=== PATIENT | male | born 1935 | race Caucasian/White ===

== ENCOUNTER 2016-09-11 08:38 | Outpatient (CLI) | payer MEDICARE | END 2016-09-11 08:39 | disposition home or self-care (01) | DX: E11.9 Type 2 diabetes mellitus without complications (principal); Z79.899 Other long term (current) drug therapy ==

== ENCOUNTER 2016-12-21 06:53 | Outpatient (CLI) | payer MEDICARE | END 2016-12-21 06:54 | disposition home or self-care (01) | DX: E78.2 Mixed hyperlipidemia (principal); E11.9 Type 2 diabetes mellitus without complications; Z79.899 Other long term (current) drug therapy ==

== ENCOUNTER 2017-04-16 08:00 | Outpatient (CLI) | payer MEDICARE ==
[2017-04-16 12:36] LABS: BASOPHILS % (AUTO) 0.8 %; EOSINOPHILS # (AUTO) 0.1 10^3/uL (0.0-0.7); EOSINOPHILS % (AUTO) 2.3 %; HCT - HEMATOCRIT 30.8 % (42.0-52.0); HGB - HEMOGLOBIN 10.6 g/dL (14.0-18.0); LYMPHOCYTES % (AUTO) 19.8 %; MEAN CORPUSCULAR HEMOGLOBIN 32.3 pg (27.0-31.0); MEAN CORPUSCULAR HGB CONC 34.3 g/dL (32.0-36.0); MEAN CORPUSCULAR VOLUME 94.3 fL (80.0-94.0); MONOCYTES # (AUTO) 0.5 10^3/uL (0.0-1.0); MONOCYTES % (AUTO) 9.7 %; NEUTROPHILS # (AUTO) 3.5 10^3/uL (1.5-6.6); NEUTROPHILS % (AUTO) 67.4 %; RED BLOOD COUNT 3.27 10^6/uL (4.70-6.10); RED CELL DISTRIBUTION WIDTH 13.2 % (12.0-15.0); UNCORRECTED WHITE BLOOD COUNT 5.1 x10^3/uL; WHITE BLOOD COUNT 5.1 x10^3/uL (4.8-10.8)
[2017-04-16 12:42] LABS: ALBUMIN/GLOBULIN RATIO 1.5 (1.0-2.2); BILIRUBIN,TOTAL 0.4 mg/dL (0.2-1.0); CALCIUM 9.4 mg/dL (8.5-10.3); CREATININE 0.5 mg/dL (0.6-1.2); POTASSIUM 4.5 mmol/L (3.5-5.0); TOTAL PROTEIN 6.8 g/dL (6.7-8.2)
[2017-04-16 13:04] LABS: HEMOGLOBIN A1C 0.82 g/dL
== END 2017-04-16 08:01 | disposition home or self-care (01) ==
LOC: LAB.R 08:00
PROVIDERS: ATTEND Nurse Practitioner Primary Care
DX: R42 Dizziness and giddiness (principal); E11.9 Type 2 diabetes mellitus without complications; D64.9 Anemia, unspecified
CPT/HCPCS: 80053; 83036; 85025

== ENCOUNTER 2017-04-21 08:00 | Outpatient (CLI) | payer MEDICARE ==
[2017-04-21 18:17] LABS: IMMATURE RETIC FRACTION 0.53; RED BLOOD COUNT 3.33 10^6/uL (4.70-6.10)
[2017-04-21 18:39] LABS: IRON 97 ug/dL (45-182); TOTAL IRON BINDING CAPACITY 283 ug/dL (250-450); TRANSFERRIN 202 mg/dL (180-329)
[2017-04-21 18:48] LABS: FOLATE 21.9 ng/mL (5.90 - >24.8)
== END 2017-04-21 08:01 | disposition home or self-care (01) ==
LOC: LAB.R 08:00
PROVIDERS: ATTEND Nurse Practitioner Primary Care
DX: D64.9 Anemia, unspecified (principal)
CPT/HCPCS: 82607; 82728; 82746; 82747; 83010; 83540; 84466; 85044; 86880

== ENCOUNTER 2017-07-16 09:51 | Outpatient (CLI) | payer MEDICARE ==
[2017-07-16 10:51] LABS: HEMOGLOBIN A1C 0.78 g/dL
== END 2017-07-16 09:52 | disposition home or self-care (01) ==
LOC: LAB 09:51
PROVIDERS: ATTEND Nurse Practitioner Primary Care
DX: E11.9 Type 2 diabetes mellitus without complications (principal)
CPT/HCPCS: 36415; 82947; 83036

== ENCOUNTER 2017-08-18 12:44 | Outpatient (CLI) | payer MEDICARE ==
[2017-08-18 12:58] LABS: BASOPHILS # (AUTO) 0.1 10^3/uL (0.0-0.1); EOSINOPHILS # (AUTO) 0.3 10^3/uL (0.0-0.7); EOSINOPHILS % (AUTO) 4.5 %; LYMPHOCYTES # (AUTO) 1.1 10^3/uL (1.5-3.5); LYMPHOCYTES % (AUTO) 16.8 %; MEAN CORPUSCULAR HEMOGLOBIN 32.7 pg (27.0-31.0); MEAN CORPUSCULAR HGB CONC 35.1 g/dL (32.0-36.0); MEAN CORPUSCULAR VOLUME 93.2 fL (80.0-94.0); MEAN PLATELET VOLUME 8.1 fL (7.4-11.4); MONOCYTES # (AUTO) 0.5 10^3/uL (0.0-1.0); MONOCYTES % (AUTO) 8.7 %; NEUTROPHILS # (AUTO) 4.4 10^3/uL (1.5-6.6); PLT - PLATELET COUNT 188 10^3/uL (130-450); RED BLOOD COUNT 3.38 10^6/uL (4.70-6.10); RED CELL DISTRIBUTION WIDTH 13.7 % (12.0-15.0); WHITE BLOOD COUNT 6.3 x10^3/uL (4.8-10.8)
== END 2017-08-18 12:45 | disposition home or self-care (01) ==
LOC: LAB 12:44
PROVIDERS: ATTEND Internal Medicine
DX: D64.9 Anemia, unspecified (principal); C61 Malignant neoplasm of prostate
CPT/HCPCS: 36415; 82728; 84153; 85025

== ENCOUNTER 2017-10-04 13:07 | Emergency (ER) | payer MEDICARE ==
--- NOTE | 2017-10-04 14:35 | ED Physician Documentation ---
PD HPI HEAD INJURY - Stated complaint Stated Complaint: HEAD INJURY/DIARRHEA - Chief complaint Chief Complaint: General - History obtained from History obtained from: Patient, Family - History of Present Illness Mechanism of head injury: Fell (he has had some watery diarrhea starting overnight into today. He was rushing to get to the bathroom and tripped off balance. He denies feeling lightheaded nor syncopal. Struck back of head. He has not had any vomiting. Family concerned about hydration. He is taking oral fluids but feels reluctant to eat (no appetite).) Where head injury occurred: Home Timing - onset: Today Location of injury: Back Quality of pain: Aching, Dull Associated symptoms: Nausea / vomiting (has some nausea but preceded hitting his head. No vomtiing.). No: LOC, AMS Symptoms worsen with: Palpation Contributing factors: No: Anticoagulated Similar symptoms before: Has not had sx before (no other recent falls but is a bit wobbly on his feet, according to family) Recently seen: Not recently seen Review of Systems Constitutional: denies: Fever, Chills Nose: denies: Rhinorrhea / runny nose, Congestion Throat: denies: Sore throat Respiratory: denies: Cough GI: reports: Nausea, Diarrhea (today). denies: Abdominal Pain, Vomiting, Bloody / black stool : denies: Dysuria Skin: reports: Abrasion (s) (scalp from fall today) Musculoskeletal: denies: Neck pain, Back pain Neurologic: reports: Generalized weakness. denies: Focal weakness, Numbness PD PAST MEDICAL HISTORY - Past Medical History Cardiovascular: None Respiratory: None Neuro: Alzhiemer's, Dementia Endocrine/Autoimmune: Type 2 diabetes - Past Surgical History Past Surgical History: No - Present Medications Home Medications: Ambulatory Orders Medication Instructions Recorded Confirmed Lovastatin 20 mg PO DAILY 12/11/13 03/12/14 Metformin HCl [Fortamet] 1,000 mg PO BID 12/11/13 03/12/14 Aspirin [Aspir 81] 81 mg PO DAILY 03/12/14 03/12/14 Insulin Glargine [Lantus Solostar] 22 units SUBQ DAILY 03/12/14 03/19/14 Insulin Glulisine [Apidra Solostar] 7 unit SQ AC 03/12/14 03/12/14 Losartan [Cozaar] 50 mg PO BID 03/12/14 03/12/14 Diphenoxylate HCl/Atropine 1 each PO Q6H PRN #12 tablet 10/04/17 [Diphenoxylate-Atrop 2.5-0.025] Lisinopril/Hydrochlorothiazide 10/04/17 [Lisinopril-Hctz 10-12.5 mg Tab] Ondansetron Odt [Zofran] 4 mg TL Q6H PRN #15 tablet 10/04/17 - Allergies Allergies/Adverse Reactions: Allergies Allergy/AdvReac Type Severity Reaction Status Date / Time No Known Drug Allergies Allergy Verified 10/04/17 13:16 - Social History Does the pt smoke?: No Smoking Status: Never smoker Does the pt drink ETOH?: Yes Does the pt have substance abuse?: No - Immunizations Immunizations are current?: Yes PD ED PE NORMAL - Vitals Vital signs reviewed: Yes - General General: No acute distress, Well developed/nourished. No: Alert and oriented X 3 (alert and conversant but not aware of time c/w his dementia and is baseline per family. ) - HEENT HEENT: PERRL, Pharynx benign, Dentition benign, Other (back of head right with abrasion and slight peel of skin. No lac per se. No FB and is not bleeding at this time. Bandaid in place. ) - Neck Neck: Supple, no meningeal sign, No bony TTP, No adenopathy - Cardiac Cardiac: RRR, No murmur - Respiratory Respiratory: Clear bilaterally, Other (no chestwall tenderness) - Abdomen Abdomen: Soft, Non tender, Non distended, No organomegaly. 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, No motor deficit, No sensory deficit, Normal speech Eye Opening: Spontaneous Motor: Obeys Commands Verbal: Oriented GCS Score: 15 - Psych Psych: Normal mood Results - Vitals Vitals: Vital Signs - 24 hr 10/04/17 10/04/17 13:11 16:18 Temperature 36.6 C 36.6 C Heart Rate 71 70 Respiratory 18 18 Rate Blood Pressure 153/69 H 124/55 L O2 Saturation 100 97 Oxygen O2 Source Room air - Labs Labs: Microbiology 10/04/17 15:50 Clostridium difficile (PCR) - Final Stool 10/04/17 15:50 Campylobacter Antigen Assay - Final Stool PD MEDICAL DECISION MAKING - ED course Complexity details: considered differential (scalp abrasion and did CT which was okay. Family concerned about the diarrhea he has had for couple of days. He does not seem dehydrated and is taking oral fluids. No abd pain nor tenderness. Will treat as likely viral and see if improves. I don't think he is dry enough to need IVs. The fall he had was mechanical and was not near syncopal.), d/w patient, d/w family Departure - Departure Disposition: 01 Home, Self Care Clinical Impression: Vomiting and diarrhea Fall from slip, trip, or stumble Qualifiers: Encounter type: initial encounter Qualified Code(s): W01.0XXA - Fall on same level from slipping, tripping and stumbling without subsequent striking against object, initial encounter Scalp abrasion Qualifiers: Encounter type: initial encounter Qualified Code(s): S00.01XA - Abrasion of scalp, initial encounter Condition: Stable Record reviewed to determine appropriate education?: Yes Instructions: ED Diet Vomiting Diarrhea, ED Avulsion Dermal Follow-Up: Naga Silvestre MD [Primary Care Provider] - Prescriptions: Diphenoxylate HCl/Atropine [Diphenoxylate-Atrop 2.5-0.025] 1 each PO Q6H PRN # 12 tablet PRN Reason: Diarrhea Ondansetron Odt [Zofran] 4 mg TL Q6H PRN #15 tablet PRN Reason: Nausea / Vomiting Comments: Continue usual medications. Drink lots of fluids. Use ondansetron if needed for nausea and Lomotil for diarrhea. For the abrasion, cleanse with soap and water twice daily and apply antibiotic ointment. Recheck if not improved over the next day or so. Return if worsening or consistent symptoms. Discharge Date/Time: 10/04/17 16:44
[2017-10-04] MEDS ORDERED: DIPHENOX/ATROPINE 2.5/0.025 MG TABLET PO STA (14:51)
[2017-10-04] MEDS ORDERED: ONDANSETRON ODT 4 MG TABLET TL STA (14:51)
[2017-10-04] MEDS ORDERED: MUPIROCIN 2% OINT 1 GM TOP STA (14:51)
[2017-10-04] MEDS ORDERED: ACETAMINOPHEN 325 MG TABLET PO STA (14:52)
--- NOTE | 2017-10-04 15:32 | CT Report ---
EXAM: CT HEAD EXAM DATE: 10/04/2017 03:24 PM. CLINICAL HISTORY: Fall with head injury, right occiput. COMPARISON: 09/10/2015. TECHNIQUE: Multiaxial CT images were obtained from the foramen magnum to the vertex. Reformats: Coron al. IV contrast: None. In accordance with CT protocol optimization, one or more of the following dose reduction techniques w ere utilized for this exam: automated exposure control, adjustment of mA and/or KV based on patient s ize, or use of iterative reconstructive technique. FINDINGS: Parenchyma: No intraparenchymal hemorrhage. No evidence of mass, midline shift, or CT findings of acu te infarction. Shine-white differentiation is distinct. Stable chronic microangiopathic white matter c hanges are evident. Extraaxial Spaces: Normal for age. No subdural or epidural collections identified. Ventricles: The ventricles and cortical sulci are prominent, consistent with age-related tissue loss. Sinuses and orbits: Imaged paranasal sinuses, orbits, and mastoids show no significant abnormality. Bones: No evidence of fracture or calvarial defect. Other: None. IMPRESSION: Stable age-related cortical atrophic changes without evidence of acute intracranial abnor mality. [facility] Referring Provider Line: [phone] SITE ID: [id number]
[2017-10-04 16:18] VITALS: BP 124/55
== END 2017-10-04 16:44 | disposition home or self-care (01) ==
LOC: ED 13:07
DX: R11.2 Nausea with vomiting, unspecified (principal); R19.7 Diarrhea, unspecified; S00.01XA Abrasion of scalp, initial encounter; W01.190A Fall on same level from slipping, tripping and stumbling with subsequent striking against furniture, initial encounter; G30.9 Alzheimer's disease, unspecified; F02.80 Dementia in other diseases classified elsewhere, unspecified severity, without behavioral disturbance, psychotic disturbance, mood disturbance, and anxiety; E11.9 Type 2 diabetes mellitus without complications; Z79.4 Long term (current) use of insulin; Z79.82 Long term (current) use of aspirin
CPT/HCPCS: 70450; 87045; 87046; 87493; 99283; A9270; Q0162

== ENCOUNTER 2017-11-09 08:00 | Outpatient (CLI) | payer MEDICARE ==
[2017-11-09 17:48] LABS: BASOPHILS # (AUTO) 0.1 10^3/uL (0.0-0.1); BASOPHILS % (AUTO) 0.6 %; EOSINOPHILS # (AUTO) 0.1 10^3/uL (0.0-0.7); EOSINOPHILS % (AUTO) 0.8 %; HGB - HEMOGLOBIN 9.9 g/dL (14.0-18.0); LYMPHOCYTES # (AUTO) 0.7 10^3/uL (1.5-3.5); LYMPHOCYTES % (AUTO) 7.7 %; MEAN CORPUSCULAR HEMOGLOBIN 31.2 pg (27.0-31.0); MEAN CORPUSCULAR VOLUME 94.3 fL (80.0-94.0); MEAN PLATELET VOLUME 8.7 fL (7.4-11.4); MONOCYTES # (AUTO) 1.2 10^3/uL (0.0-1.0); MONOCYTES % (AUTO) 13.6 %; NEUTROPHILS # (AUTO) 6.8 10^3/uL (1.5-6.6); NEUTROPHILS % (AUTO) 77.3 %; PLT - PLATELET COUNT 209 10^3/uL (130-450); RED BLOOD COUNT 3.19 10^6/uL (4.70-6.10); RED CELL DISTRIBUTION WIDTH 13.4 % (12.0-15.0); WHITE BLOOD COUNT 8.7 x10^3/uL (4.8-10.8)
[2017-11-09 17:53] LABS: ALBUMIN 3.9 g/dL (3.2-5.5); ALBUMIN/GLOBULIN RATIO 1.3 (1.0-2.2); ALKALINE PHOSPHATASE 48 IU/L (42-121); ALT ALANINE AMINOTRANSFERASE 41 IU/L (10-60); AST ASPARTATE AMINOTRANSFERASE 37 IU/L (10-42); BILIRUBIN,TOTAL 0.8 mg/dL (0.2-1.0); BUN - BLOOD UREA NITROGEN 23 mg/dL (6-20); CALCIUM 8.6 mg/dL (8.5-10.3); CARBON DIOXIDE - CO2 23 mmol/L (21-32); CHLORIDE 97 mmol/L (101-111); CHOL/HDL RATIO 2.3 (<5.0); CHOLESTEROL 126 mg/dL; CREATININE 0.9 mg/dL (0.6-1.2); GFR - MDRD 81 (>89); GLUCOSE 246 mg/dL (70-100); HDL CHOLESTEROL 55 mg/dL; LDL CHOLESTEROL,CALCULATED 53 mg/dL; SODIUM 129 mmol/L (135-145); TOTAL PROTEIN 6.9 g/dL (6.7-8.2); VLDL CHOLESTEROL 18 mg/dL
[2017-11-09 18:25] LABS: HB2 TOTAL 10.3 g/dL; HEMOGLOBIN A1C 0.54 g/dL; HEMOGLOBIN A1C % 6.9 % (4.6-6.2)
== END 2017-11-09 08:01 ==
LOC: LAB.R 08:00
PROVIDERS: ATTEND Nurse Practitioner Primary Care
DX: E11.9 Type 2 diabetes mellitus without complications (principal); E78.5 Hyperlipidemia, unspecified; C61 Malignant neoplasm of prostate; F03.90 Unspecified dementia, unspecified severity, without behavioral disturbance, psychotic disturbance, mood disturbance, and anxiety
CPT/HCPCS: 36415; 80053; 80061; 82607; 82728; 82746; 83010; 83036; 83721; 84153; 84443; 85025; 85044; 86880

== ENCOUNTER 2017-11-11 14:00 | Outpatient (CLI) | payer MEDICARE ==
[2017-11-11 17:06] LABS: RED BLOOD COUNT 3.31 10^6/uL (4.70-6.10)
[2017-11-11 17:29] LABS: FERRITIN 580.4 ng/mL (23.9-336.2)
== END 2017-11-11 14:01 ==
LOC: LAB.R 14:00
PROVIDERS: ATTEND Nurse Practitioner Primary Care
DX: D64.9 Anemia, unspecified (principal)
CPT/HCPCS: 82607; 82728; 82746; 85044; 86880

== ENCOUNTER 2018-02-07 08:00 | Outpatient (CLI) | END 2018-02-07 08:01 | disposition home or self-care (01) ==

== ENCOUNTER 2018-02-09 14:10 | Outpatient (CLI) | payer MEDICARE ==
[2018-02-09 18:07] LABS: HB2 TOTAL 10.9 g/dL; HEMOGLOBIN A1C 0.52 g/dL; HEMOGLOBIN A1C % 6.5 % (4.6-6.2)
== END 2018-02-09 14:11 | disposition home or self-care (01) ==
LOC: LAB.R 14:10
PROVIDERS: ATTEND Nurse Practitioner Primary Care
DX: E11.9 Type 2 diabetes mellitus without complications (principal)
CPT/HCPCS: 83036

== ENCOUNTER 2018-08-25 11:15 | Outpatient (CLI) | payer MEDICARE | END 2018-08-25 23:59 | disposition home or self-care (01) | LOC: LAB.R 11:15 | PROVIDERS: ATTEND Urology | DX: C61 Malignant neoplasm of prostate (principal) | CPT/HCPCS: 84153 ==

== ENCOUNTER 2018-09-26 08:00 | Outpatient (CLI) | payer MEDICARE ==
[2018-09-26 13:10] LABS: BASOPHILS % (AUTO) 0.6 %; EOSINOPHILS # (AUTO) 0.1 10^3/uL (0.0-0.7); EOSINOPHILS % (AUTO) 1.9 %; HGB - HEMOGLOBIN 9.6 g/dL (14.0-18.0); LYMPHOCYTES # (AUTO) 0.7 10^3/uL (1.5-3.5); LYMPHOCYTES % (AUTO) 16.6 %; MEAN CORPUSCULAR HEMOGLOBIN 31.1 pg (27.0-31.0); MEAN CORPUSCULAR HGB CONC 33.8 g/dL (32.0-36.0); MEAN CORPUSCULAR VOLUME 91.9 fL (80.0-94.0); MEAN PLATELET VOLUME 8.8 fL (7.4-11.4); MONOCYTES # (AUTO) 0.4 10^3/uL (0.0-1.0); MONOCYTES % (AUTO) 9.1 %; NEUTROPHILS # (AUTO) 3.1 10^3/uL (1.5-6.6); NEUTROPHILS % (AUTO) 71.8 %; PLT - PLATELET COUNT 182 10^3/uL (130-450); RED BLOOD COUNT 3.09 10^6/uL (4.70-6.10); RED CELL DISTRIBUTION WIDTH 15.1 % (12.0-15.0); WHITE BLOOD COUNT 4.3 x10^3/uL (4.8-10.8)
[2018-09-26 13:18] LABS: ALBUMIN 3.7 g/dL (3.2-5.5); ALBUMIN/GLOBULIN RATIO 1.3 (1.0-2.2); BILIRUBIN,TOTAL 0.9 mg/dL (0.2-1.0); CALCIUM 8.8 mg/dL (8.5-10.3); CREATININE 0.6 mg/dL (0.6-1.2); TOTAL PROTEIN 6.6 g/dL (6.7-8.2)
[2018-09-26 13:40] LABS: HB2 TOTAL 10.3 g/dL; HEMOGLOBIN A1C 0.58 g/dL; HEMOGLOBIN A1C % 7.3 % (4.6-6.2)
== END 2018-09-26 23:59 | disposition home or self-care (01) ==
LOC: LAB.R 08:00
PROVIDERS: ATTEND Internal Medicine
DX: I10 Essential (primary) hypertension (principal); E11.9 Type 2 diabetes mellitus without complications
CPT/HCPCS: 80053; 83036; 85025

== ENCOUNTER 2019-01-03 13:56 | Emergency (ER) | payer MEDICARE ==
[2019-01-03 14:07] VITALS: BP 144/62
[2019-01-03] MEDS ORDERED: TETANUS/DIPHTHERIA/PERTUSSIS 0.5 ML SYRINGE IM ONE (14:15)
--- NOTE | 2019-01-03 14:18 | ED Physician Documentation ---
PD HPI HEAD INJURY - Stated complaint Stated Complaint: GLF/HEAD AND ELBOW INJURY - Chief complaint Chief Complaint: Trauma Hd/Nk - History obtained from History obtained from: Family (daughter) - History of Present Illness Mechanism of head injury: Fell (Trip and fall on the curb, he has some skin tears on the left hand and left elbow scraped his face. No loss of consciousness. He has no specific complaints but has Alzheimer's. He is pleasant cooperative with a great sense of humor but a poor historian.) Review of Systems Unable to obtain: Dementia PD PAST MEDICAL HISTORY - Past Medical History Cardiovascular: None Respiratory: None, Shortness of breath Neuro: Alzhiemer's Endocrine/Autoimmune: Type 2 diabetes : Frequency Derm: Eczema - Past Surgical History Past Surgical History: No - Present Medications Home Medications: Ambulatory Orders Medication Instructions Recorded Confirmed Metformin HCl [Fortamet] 1,000 mg PO DAILY 12/11/13 12/19/18 Aspirin [Aspir 81] 81 mg PO DAILY 03/12/14 12/19/18 Insulin Glargine [Lantus Solostar] 22 units SUBQ DAILY 03/12/14 12/19/18 Insulin Glulisine [Apidra Solostar] 7 unit SQ AC 03/12/14 12/19/18 Losartan [Cozaar] 25 mg PO BID 03/12/14 12/19/18 Multivit-Min/FA/Lycopen/Lutein 1 tab PO DAILY 11/07/18 12/19/18 [Centrum Silver Men Tablet] Vitamin B Complex/Folic Acid 1,000 mg PO DAILY 11/07/18 12/19/18 [B-Complex Tablet] - Allergies Allergies/Adverse Reactions: Allergies Allergy/AdvReac Type Severity Reaction Status Date / Time No Known Drug Allergies Allergy Verified 01/03/19 14:07 - Social History Does the pt smoke?: No Smoking Status: Never smoker Does the pt drink ETOH?: Yes Does the pt have substance abuse?: No - Immunizations Immunizations are current?: Yes PD ED PE NORMAL - Vitals Vital signs reviewed: Yes - General General: Other (Alert and oriented to person only) - HEENT HEENT: PERRL, EOMI, Other (There is a small abrasion on the right forehead, no bony tenderness of the face) - Neck Neck: Supple, no meningeal sign, No bony TTP - Cardiac Cardiac: RRR, No murmur - Respiratory Respiratory: No respiratory distress, Clear bilaterally - Abdomen Abdomen: Non tender - Back Back: No spinal TTP - Extremities Extremities: Other (There is a shallow crescentic 2 cm skin tear on the lateral epicondyle of the left elbow without tenderness or limited range of motion and a little abrasion on the ulnar side of the fifth metacarpal, also without tenderness or limited range of motion) - 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, Normal speech Eye Opening: Spontaneous Motor: Obeys Commands Verbal: Confused GCS Score: 14 Results - Vitals Vitals: Vital Signs - 24 hr 01/03/19 01/03/19 14:05 14:08 Temperature 36.5 C Heart Rate 100 Respiratory 18 18 Rate Blood Pressure 144/62 H O2 Saturation 99 Oxygen O2 Source Room air - Rads (name of study) CT Head and C spine Radiology: EMP read contemporaneously (NAD< Vascular disease) Departure - Departure Disposition: 01 Home, Self Care Clinical Impression: Concussion Qualifiers: Encounter type: initial encounter Loss of consciousness presence/duration: without LOC Qualified Code(s): S06.0X0A - Concussion without loss of consciousness, initial encounter Fall from slip, trip, or stumble Qualifiers: Encounter type: initial encounter Qualified Code(s): W01.0XXA - Fall on same level from slipping, tripping and stumbling without subsequent striking against object, initial encounter Scalp abrasion Qualifiers: Encounter type: initial encounter Qualified Code(s): S00.01XA - Abrasion of scalp, initial encounter Elbow abrasion Qualifiers: Encounter type: initial encounter Laterality: left Qualified Code(s): S50.312A - Abrasion of left elbow, initial encounter Condition: Stable Record reviewed to determine appropriate education?: Yes Instructions: ED Head Injury Closed Comments: The abrasions can be cleansed with soap and water and kept moist with bacitracin ointment which is available [id number]. The CAT scans are normal with the exception of hardening of the arteries in the neck. You can discuss a carotid ultrasound with your primary care physician with overall goals of care in mind. Return for new or worsening symptoms.
--- NOTE | 2019-01-03 14:42 | CT Report ---
Reason: head inj, fall Procedure Date: 01/03/2019 Accession Number: [id number] / [id number] Procedure: CT - HEAD WO CPT Code: FULL RESULT: EXAM: CT HEAD EXAM DATE: 01/03/2019 02:30 PM. CLINICAL HISTORY: Fall, pain. COMPARISON: HEAD W/O 10/04/2017 3:15 PM. TECHNIQUE: Multiaxial CT images were obtained from the foramen magnum to the vertex. Reformats: Sagittal and coronal. IV contrast: None. In accordance with CT protocol optimization, one or more of the following dose reduction techniques were utilized for this exam: automated exposure control, adjustment of mA and/or KV based on patient size, or use of iterative reconstructive technique. FINDINGS: Parenchyma: No intraparenchymal hemorrhage. No evidence of mass, midline shift, or CT findings of acute infarction. Shine-white differentiation is distinct. Diffuse chronic microangiopathic white matter changes. Extraaxial Spaces: Normal for age. No subdural or epidural collections. Ventricles: The ventricles and cortical sulci are enlarged, consistent with age-related tissue loss. Sinuses and orbits: Imaged paranasal sinuses, orbits, and mastoids show no significant abnormality. Bones: Unremarkable. Other: Localized soft tissue swelling with small amount of subcutaneous emphysema lateral to the left orbit. IMPRESSION: 1. Soft tissue swelling. 2. Generalized age-related cortical atrophic changes without evidence of acute intracranial abnormality. [facility]
--- NOTE | 2019-01-03 14:48 | CT Report ---
Reason: head inj, fall Procedure Date: 01/03/2019 Accession Number: [id number] / [id number] Procedure: CT - CERVICAL SPINE WO CPT Code: FULL RESULT: EXAM: CT CERVICAL SPINE WITHOUT CONTRAST DATE: 01/03/2019 02:30 PM. HISTORY: Fall, pain. COMPARISONS: HEAD W/O 10/04/2017 3:15 PM. TECHNIQUE: Thin-section axial images were acquired of the cervical spine without contrast. Post-processing: Coronal and sagittal reformats. Other: None. In accordance with CT protocol optimization, one or more of the following dose reduction techniques were utilized for this exam: automated exposure control, adjustment of mA and/or KV based on patient size, or use of iterative reconstructive technique. FINDINGS: Alignment: Moderate scoliosis. No listhesis. Bones: No fracture or bone lesion. Interspace Levels/Facets: Disk spaces generally well preserved. Moderate to marked degenerative changes, right worse than left. Musculature: Unremarkable. Other: No prevertebral soft tissue swelling. Prominent carotid calcifications. Right lung apex appears clear; left lung apex not seen. IMPRESSION: 1. No acute disease. 2. Chronic findings as described, including carotid calcifications. Carotid duplex ultrasound is recommended. [facility]
== END 2019-01-03 15:03 | disposition home or self-care (01) ==
LOC: ED 13:56
DX: S06.0X0A Concussion without loss of consciousness, initial encounter (principal); S00.81XA Abrasion of other part of head, initial encounter; S51.012A Laceration without foreign body of left elbow, initial encounter; S61.217A Laceration without foreign body of left little finger without damage to nail, initial encounter; W01.0XXA Fall on same level from slipping, tripping and stumbling without subsequent striking against object, initial encounter; Y92.481 Parking lot as the place of occurrence of the external cause; G20 Parkinson's disease; E11.9 Type 2 diabetes mellitus without complications; Z79.4 Long term (current) use of insulin
CPT/HCPCS: 70450; 72125; 90471; 99283

== ENCOUNTER 2019-01-09 22:07 | Emergency (ER) | payer MEDICARE ==
[2019-01-09] MEDS ORDERED: SODIUM CHLORIDE 0.9% 1,000 ML IV ONE (22:23)
--- NOTE | 2019-01-09 22:26 | ED Physician Documentation ---
History of Present Illness - Stated complaint Stated Complaint: FEELS WARM - History obtained from History obtained from: Family - Additonal information Additional information: Patient is an 83-year-old male with history of dementia and diabetes presenting with his adult daughter who is concerned for him being slightly more confused than usual. She does admit that he usually goes to bed at 9 PM and did exert himself more than usual today with walking around and is possibly dehydrated. She denies new injury, fall, striking of head. She also denies any changes in his medical baseline such as new vomiting, diarrhea, urinary changes, complains of pain, difficulty breathing, cough, or fever. No other improving or worsening factors noted. Review of Systems Constitutional: denies: Fever Cardiac: denies: Chest pain / pressure Respiratory: denies: Dyspnea PD PAST MEDICAL HISTORY - Past Medical History Cardiovascular: None Respiratory: None, Shortness of breath Neuro: Alzhiemer's Endocrine/Autoimmune: Type 2 diabetes : Frequency Derm: Eczema - Past Surgical History Past Surgical History: No - Present Medications Home Medications: Ambulatory Orders Medication Instructions Recorded Confirmed Metformin HCl [Fortamet] 1,000 mg PO DAILY 12/11/13 12/19/18 Aspirin [Aspir 81] 81 mg PO DAILY 03/12/14 12/19/18 Insulin Glargine [Lantus Solostar] 22 units SUBQ DAILY 03/12/14 12/19/18 Insulin Glulisine [Apidra Solostar] 7 unit SQ AC 03/12/14 12/19/18 Losartan [Cozaar] 25 mg PO BID 03/12/14 12/19/18 Multivit-Min/FA/Lycopen/Lutein 1 tab PO DAILY 11/07/18 12/19/18 [Centrum Silver Men Tablet] Vitamin B Complex/Folic Acid 1,000 mg PO DAILY 11/07/18 12/19/18 [B-Complex Tablet] Azithromycin 250 mg PO DAILY #4 tablet 01/10/19 - Allergies Allergies/Adverse Reactions: Allergies Allergy/AdvReac Type Severity Reaction Status Date / Time No Known Drug Allergies Allergy Verified 01/03/19 14:07 - Social History Does the pt smoke?: No Smoking Status: Never smoker Does the pt drink ETOH?: Yes Does the pt have substance abuse?: No - Immunizations Immunizations are current?: Yes PD ED PE NORMAL - Vitals Vital signs reviewed: Yes - General General: No acute distress, Well developed/nourished, Other (Appears confused and is otherwise not oriented, but daughter reports his baseline) - HEENT HEENT: Atraumatic, PERRL, Moist mucous membranes - Cardiac Cardiac: RRR, No murmur - Respiratory Respiratory: No respiratory distress, Clear bilaterally - Abdomen Abdomen: Soft, Non tender, Non distended - Derm Derm: Normal color, Warm and dry, No rash - Extremities Extremities: No deformity, No tenderness to palpate - Neuro Neuro: No motor deficit, No sensory deficit (No gross deficits noted. Per daughter, patient has had his normal physical and mental baseline except for slight more confusion than usual). No: Alert and oriented X 3 Results - Vitals Vitals: Vital Signs - 24 hr 01/09/19 01/09/19 01/09/19 22:22 22:46 23:03 Temperature 37.7 C H Heart Rate 80 80 77 Respiratory 20 18 16 Rate Blood Pressure 155/60 H 149/77 H 148/63 H O2 Saturation 92 93 94 Oxygen O2 Source Room air - EKG (time done) 2227 Rate: Rate (enter#) (84) Rhythm: NSR Computer interpretation: Disagree with computer (Artifact present, not A. fib) - Labs Labs: Laboratory Tests 01/09/19 01/09/19 01/09/19 22:35 22:35 22:35 WBC 16.6 H RBC 3.74 L Hgb 11.1 L Hct 34.1 L MCV 91.1 MCH 29.6 MCHC 32.5 RDW 15.6 H Plt Count 192 MPV 7.9 Neut # (Auto) 15.3 H Lymph # (Auto) 0.5 L Bea[place]gard # (Auto) 0.7 Eos # (Auto) 0.1 Baso # (Auto) 0.1 Absolute Nucleated RBC 0.00 Nucleated RBC % 0.0 Sodium 136 Potassium 4.2 Chloride 100 L Carbon Dioxide 22 Anion Gap 14.0 H BUN 27 H Creatinine 0.7 Estimated GFR (MDRD) 108 Glucose 174 H Lactic Acid Calcium 9.2 Total Bilirubin 0.6 AST 28 ALT 21 Alkaline Phosphatase 63 Troponin I < 0.04 Total Protein 7.6 Albumin 4.3 Globulin 3.3 Albumin/Globulin Ratio 1.3 Lipase 21 L Urine Color Urine Clarity Urine pH Ur Specific [place] Urine Protein Urine Glucose (UA) Urine Ketones Urine Occult Blood Urine Nitrite Urine Bilirubin Urine Urobilinogen Ur Leukocyte Esterase Urine RBC Urine WBC Ur Squamous Epith Cells Urine Bacteria Urine Mucus Ur Microscopic Review Urine Culture Comments 01/09/19 01/09/19 23:20 23:55 WBC RBC Hgb Hct MCV MCH MCHC RDW Plt Count MPV Neut # (Auto) Lymph # (Auto) Bea[place]gard # (Auto) Eos # (Auto) Baso # (Auto) Absolute Nucleated RBC Nucleated RBC % Sodium Potassium Chloride Carbon Dioxide Anion Gap BUN Creatinine Estimated GFR (MDRD) Glucose Lactic Acid 1.8 Calcium Total Bilirubin AST ALT Alkaline Phosphatase Troponin I Total Protein Albumin Globulin Albumin/Globulin Ratio Lipase Urine Color YELLOW Urine Clarity CLEAR Urine pH 6.0 Ur Specific [place] 1.020 Urine Protein 30 H Urine Glucose (UA) NEGATIVE Urine Ketones NEGATIVE Urine Occult Blood TRACE-INTA Urine Nitrite NEGATIVE Urine Bilirubin NEGATIVE Urine Urobilinogen 0.2 (NORMAL) Ur Leukocyte Esterase NEGATIVE Urine RBC 0-5 Urine WBC 0-3 Ur Squamous Epith Cells RARE Squamous Urine Bacteria None Seen Urine Mucus Few Strands Ur Microscopic Review INDICATED Urine Culture Comments NOT INDICATED PD MEDICAL DECISION MAKING - ED course Complexity details: reviewed old records, reviewed results, re-evaluated patient, considered differential, d/w patient, d/w family ED course: Patient is presenting with his daughter who is concerned for him being slightly more confused than usual. She denies any new trauma or falls and do not find evidence of new trauma on exam. However, patient did experience a fall recently and was evaluated for such already. Patient himself does not provide much history or complaints. Daughter denies anything in particular, but later does report both her and her father were generally having a cough several days ago which seemed to have resolved. Obtain screening lab work and urinalysis. Also obtain EKG and troponin. No evidence of ischemia and have low suspicion for VA, ACS, myocardial infarction at this time, but considered. Screening lab work returned with evidence of significant leukocytosis. Urinalysis negative for infection. Obtained chest x-ray to further evaluate which reflected pneumonia. Patient to receive IV antibiotics in the ED, however, feel that he has not required hospitalization or exhibiting signs of sepsis at this time and is safe to discharge home. Discussed results and recommendations with daughter who is also comfortable with discharge plan. Departure - Departure Disposition: 01 Home, Self Care Clinical Impression: Pneumonia Qualifiers: Pneumonia type: due to unspecified organism Laterality: unspecified laterality Lung location: unspecified part of lung Qualified Code(s): J18.9 - Pneumonia, unspecified organism Condition: Good Instructions: ED Pneumonia Adult Follow-Up: Chidi Retana MD [Primary Care Provider] - Within 3 Days Prescriptions: Azithromycin 250 mg PO DAILY #4 tablet Comments: Please continue all home medications as previously instructed. Please take antibiotic as instructed through completion to treat pneumonia. Please contact your primary care physician tomorrow to schedule outpatient follow-up within the next several days. Return to ED sooner if experience worsening symptoms or other concerns. Discharge Date/Time: 01/10/19 00:33
[2019-01-09 22:45] LABS: BASOPHILS # (AUTO) 0.1 10^3/uL (0.0-0.1); BASOPHILS % (AUTO) 0.4 %; EOSINOPHILS # (AUTO) 0.1 10^3/uL (0.0-0.7); EOSINOPHILS % (AUTO) 0.5 %; HGB - HEMOGLOBIN 11.1 g/dL (14.0-18.0); LYMPHOCYTES # (AUTO) 0.5 10^3/uL (1.5-3.5); LYMPHOCYTES % (AUTO) 2.9 %; MEAN CORPUSCULAR HEMOGLOBIN 29.6 pg (27.0-31.0); MEAN CORPUSCULAR HGB CONC 32.5 g/dL (32.0-36.0); MEAN CORPUSCULAR VOLUME 91.1 fL (80.0-94.0); MEAN PLATELET VOLUME 7.9 fL (7.4-11.4); MONOCYTES # (AUTO) 0.7 10^3/uL (0.0-1.0); MONOCYTES % (AUTO) 4.2 %; NEUTROPHILS # (AUTO) 15.3 10^3/uL (1.5-6.6); PLT - PLATELET COUNT 192 10^3/uL (130-450); RED BLOOD COUNT 3.74 10^6/uL (4.70-6.10); RED CELL DISTRIBUTION WIDTH 15.6 % (12.0-15.0); WHITE BLOOD COUNT 16.6 x10^3/uL (4.8-10.8)
[2019-01-09 22:58] LABS: ALBUMIN 4.3 g/dL (3.2-5.5); ALBUMIN/GLOBULIN RATIO 1.3 (1.0-2.2); BILIRUBIN,TOTAL 0.6 mg/dL (0.2-1.0); CALCIUM 9.2 mg/dL (8.5-10.3); CREATININE 0.7 mg/dL (0.6-1.2); TOTAL PROTEIN 7.6 g/dL (6.7-8.2)
[2019-01-09 23:25] LABS: BILIRUBIN,URINE NEGATIVE (NEGATIVE); GLUCOSE, URINE (UA) NEGATIVE (NEGATIVE); KETONES,URINE (UA) NEGATIVE (NEGATIVE); LEUKOCYTE ESTERASE, URINE NEGATIVE (NEGATIVE); NITRITE,URINE NEGATIVE (NEGATIVE); OCCULT BLOOD,URINE TRACE-INTA (NEGATIVE); PROTEIN,URINE 30 mg/dL (NEGATIVE); UROBILINOGEN,URINE 0.2 (NORMAL) E.U./dL (NORMAL)
[2019-01-09 23:27] LABS: CLARITY,URINE CLEAR (CLEAR)
[2019-01-09 23:33] LABS: BACTERIA,URINE None Seen /HPF (None Seen); MUCUS,URINE Few Strands; RBC,URINE 0-5 /HPF (0-5); SQUAMOUS EPITHELIAL CELL,UR RARE Squamous (<= Few)
--- NOTE | 2019-01-09 23:46 | XRAY Report ---
Reason: cough Procedure Date: 01/09/2019 Accession Number: [id number] / [id number] Procedure: XR - Chest 2 View X-Ray CPT Code: 06248 FULL RESULT: EXAM: CHEST RADIOGRAPHY EXAM DATE: 01/09/2019 11:38 PM. CLINICAL HISTORY: Cough. COMPARISON: ABDOMEN/PELVIS W/ 05/28/2016 7:29 PM. TECHNIQUE: 2 views. FINDINGS: Lungs/Pleura: Retrocardiac airspace opacity is probably in the left lower lobe. No pneumothorax or effusion. Mediastinum: Borderline cardiomegaly. No mediastinal shift. Other: None. IMPRESSION: Probable left lower lobe pneumonia. [facility]
[2019-01-09] MEDS ORDERED: AZITHROMYCIN INJ 500 MG in SODIUM CHLORIDE 0.9% 250 ML IV STA (23:50)
[2019-01-09] MEDS ORDERED: cefTRIAXone 2 GM in SODIUM CHLORIDE 0.9% MINIBAG 100 ML IV STA (23:50)
[2019-01-10 02:16] VITALS: BP 124/71
== END 2019-01-10 02:20 | disposition home or self-care (01) ==
LOC: ED 22:07
DX: J18.9 Pneumonia, unspecified organism (principal); G30.9 Alzheimer's disease, unspecified; F02.80 Dementia in other diseases classified elsewhere, unspecified severity, without behavioral disturbance, psychotic disturbance, mood disturbance, and anxiety; E11.9 Type 2 diabetes mellitus without complications; Z79.4 Long term (current) use of insulin
CPT/HCPCS: 36415; 71046; 80053; 81001; 81003; 83605; 83690; 84484; 85025; 87040; 87086; 93005; 96361; 96365; 96375; 99283; 99284

== ENCOUNTER 2019-06-11 13:00 | Emergency (ER) | payer MEDICARE ==
[2019-06-11 13:17] VITALS: BP 144/64
== END 2019-06-11 13:47 | disposition left against medical advice (07) ==
LOC: ED 13:00
DX: Z53.21 Procedure and treatment not carried out due to patient leaving prior to being seen by health care provider (principal)

== ENCOUNTER 2019-07-13 10:39 | Outpatient (CLI) | payer MEDICARE | END 2019-07-13 10:40 | disposition critical access hospital (66) | LOC: EMS 10:39 | PROVIDERS: ATTEND Surgery | DX: R53.1 Weakness (principal); R29.810 Facial weakness; R50.9 Fever, unspecified | CPT/HCPCS: A0425; A0429 ==

== ENCOUNTER 2019-07-13 10:51 | Inpatient (IN) | payer MEDICARE ==
--- NOTE | 2019-07-13 11:07 | ED Physician Documentation ---
PD HPI FOCAL NEURO - Stated complaint Stated Complaint: ALOC - Chief complaint Chief Complaint: Neuro - History obtained from History obtained from: Family, EMS - History of Present Illness Timing - onset: Unknown (The patient was last seen normal last night at bedtime and his daughter went to wake him up this morning around 10:00 and he was nonverbal and seemed to be on recognizing of her with deviation of gaze to the left and general weakness. She thought there may been a slight facial droop on the left side. This is unusual behavior for him.) Timing - details: Abrupt onset, Still present Weakness: Other (generalized) Numbness: No: Face, Arm, Leg Associated symptoms: No: Headache, Seizure, Fall, Head injury Contributing factors: positive: Atrial fibrillation (on aspirin only). negative: Anticoagulated Baseline status: positive: Walker, Dementia Similar symptoms before: Has not had sx before Recently seen: Clinic (seen in office recently for increased confusion with presumption of increased dementia. Also with presumed dehydration as had not been taking fluids well.) Review of Systems Unable to obtain: Unresponsive, Other (info from his daughter) Constitutional: denies: Fever Nose: denies: Rhinorrhea / runny nose Cardiac: denies: Chest pain / pressure (patient had not complained of any to his dauther) Respiratory: denies: Cough GI: denies: Abdominal Pain, Vomiting, Diarrhea : reports: Incontinent Musculoskeletal: denies: Neck pain, Back pain PD PAST MEDICAL HISTORY - Past Medical History Cardiovascular: None Respiratory: None, Shortness of breath Neuro: Alzhiemer's Endocrine/Autoimmune: Type 2 diabetes : Frequency Derm: Eczema - Past Surgical History Past Surgical History: No - Present Medications Home Medications: Ambulatory Orders Medication Instructions Recorded Confirmed Metformin HCl [Fortamet] 1,000 mg PO DAILY 12/11/13 02/27/19 Aspirin [Aspir 81] 81 mg PO DAILY 03/12/14 02/27/19 Insulin Glargine [Lantus Solostar] 22 units SUBQ DAILY 03/12/14 02/27/19 Insulin Glulisine [Apidra Solostar] 7 unit SQ AC 03/12/14 02/27/19 Losartan [Cozaar] 25 mg PO BID 03/12/14 02/27/19 Multivit-Min/FA/Lycopen/Lutein 1 tab PO DAILY 11/07/18 02/27/19 [Centrum Silver Men Tablet] Vitamin B Complex/Folic Acid 1,000 mg PO DAILY 11/07/18 02/27/19 [B-Complex Tablet] - Allergies Allergies/Adverse Reactions: Allergies Allergy/AdvReac Type Severity Reaction Status Date / Time No Known Drug Allergies Allergy Verified 07/13/19 11:01 - Social History Does the pt smoke?: No Smoking Status: Never smoker Does the pt drink ETOH?: Yes Does the pt have substance abuse?: No - Immunizations Immunizations are current?: Yes PD ED PE NORMAL - Vitals Vital signs reviewed: Yes - General General: Well developed/nourished, Other (fixed gaze to the left with apparent neglect to the right. Nonverbal. 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 ) - HEENT HEENT: Pharynx benign - Neck Neck: Supple, no meningeal sign, No adenopathy, No bruit - Cardiac Cardiac: No murmur. No: RRR (irregular but controlled rate. ) - Respiratory Respiratory: Clear bilaterally - Abdomen Abdomen: Soft, Non tender - Derm Derm: Normal color, Warm and dry - Extremities Extremities: No edema, No calf tenderness / cord - Neuro Neuro: No motor deficit, No sensory deficit. No: Normal speech NIHSS - Level of Consciousness Level of consciousness: (1) Not alert, but arousable by minor stimulation to obey, or answer LOC Questions: (2) Answers neither correct LOC Commands: (1) Performs one correctly - Gaze Best Gaze: (2) Forced deviation - Visual Visual: (0) No loss - Facial Palsy Facial Palsy: (0) Normal, symmetrical movement - Motor Arms (both separate) Motor Arm (right): (0) No drift Motor Arm (left): (0) No drift - Motor Legs (both separate) Motor Leg (right): (0) No drift Motor Leg (left): (0) No drift - Limb Ataxia Limb Ataxia: (2) Present in 2 limbs - Sensory Sensory: (0) Normal - Best Language Best Language: (2) Severe aphasia - Dysarthria Dysarthria: (0) Normal - Extinction and Inattention (formally neg Extinction and inattention: (2) Profound oriana-inattention or extinction to more than one modality - Total Score/Results Total Score/Result: 12 Results - Vitals Vitals: Vital Signs - 24 hr 07/13/19 07/13/19 10:52 13:01 Temperature 99.3 C H Heart Rate 80 75 Respiratory 18 15 Rate Blood Pressure 127/95 H 158/85 H O2 Saturation 100 92 Oxygen O2 Source Room air - EKG (time done) 12:10 Rate: Rate (enter#) (82) Rhythm: Atrial fibrillation [place]: Normal QRS: Normal Ischemia: Normal ST segments. No: ST elevation c/w ischemia, ST depression - Labs Labs: Laboratory Tests 07/13/19 07/13/19 07/13/19 11:02 11:02 11:02 WBC 11.7 H RBC 3.07 L Hgb 9.6 L Hct 29.7 L MCV 96.7 H MCH 31.3 H MCHC 32.3 RDW 13.1 Plt Count 332 MPV 9.1 Neut # (Auto) 9.5 H Lymph # (Auto) 0.8 L [place] # (Auto) 1.2 H Eos # (Auto) 0.1 Baso # (Auto) 0.0 Absolute Nucleated RBC 0.00 Nucleated RBC % 0.0 Sodium 141 Potassium 3.8 Chloride 105 Carbon Dioxide 26 Anion Gap 10.0 BUN 19 Creatinine 0.7 Estimated GFR (MDRD) 108 Glucose 125 H Glycated Hemoglobin 7.0 H Estim Average Glucose 154 H Lactic Acid Calcium 8.5 Magnesium 2.0 Total Bilirubin 1.2 H AST 73 H ALT 43 Alkaline Phosphatase 75 Total Protein 7.3 Albumin 3.4 Globulin 3.9 Albumin/Globulin Ratio 0.9 L Lipase 21 L 07/13/19 12:12 WBC RBC Hgb Hct MCV MCH MCHC RDW Plt Count MPV Neut # (Auto) Lymph # (Auto) [place] # (Auto) Eos # (Auto) Baso # (Auto) Absolute Nucleated RBC Nucleated RBC % Sodium Potassium Chloride Carbon Dioxide Anion Gap BUN Creatinine Estimated GFR (MDRD) Glucose Glycated Hemoglobin Estim Average Glucose Lactic Acid 1.3 Calcium Magnesium Total Bilirubin AST ALT Alkaline Phosphatase Total Protein Albumin Globulin Albumin/Globulin Ratio Lipase - Rads (name of study) head CT Radiology: Prelim report reviewed, Discussed with rads (no ICH. Small acute to subacute infarct left prefrontal 1x1.8 cm. The angio portion did not show any major vessel abnormality. ), See rad report chest xray Radiology: Prelim report reviewed (no acute infiltrates), See rad report PD MEDICAL DECISION MAKING - ED course Complexity details: considered differential, d/w patient, d/w family (daughter informed of the findings and updated along the way. She is the POA and states the patient did not have POLST as yet, but we discussed the various levels of interventions so the hospitalist can firm up the level of care appropriate. ), d/w real estate listing consultant (I talked with [facility] stroke neurology who felt the patient was not a candidate for TPA nor endovascular interventions. Suggest echocardiogram. If indicated and the patient is low risk for falls etc., to recommend further anticoagulation after a week.) Departure - Departure Disposition: 66 [facility] DC/Xfer Clinical Impression: Acute CVA (cerebrovascular accident), Aphasia Condition: Stable Record reviewed to determine appropriate education?: Yes Discharge Date/Time: 07/13/19 14:13
[2019-07-13] MEDS ORDERED: SODIUM CHLORIDE 0.9% 1,000 ML IV ONE (11:08)
[2019-07-13 11:15] LABS: BASOPHILS % (AUTO) 0.3 %; EOSINOPHILS # (AUTO) 0.1 10^3/uL (0.0-0.7); EOSINOPHILS % (AUTO) 0.8 %; HGB - HEMOGLOBIN 9.6 g/dL (14.0-18.0); LYMPHOCYTES # (AUTO) 0.8 10^3/uL (1.5-3.5); MEAN CORPUSCULAR HEMOGLOBIN 31.3 pg (27.0-31.0); MEAN CORPUSCULAR HGB CONC 32.3 g/dL (32.0-36.0); MEAN CORPUSCULAR VOLUME 96.7 fL (80.0-94.0); MEAN PLATELET VOLUME 9.1 fL (7.4-11.4); MONOCYTES # (AUTO) 1.2 10^3/uL (0.0-1.0); MONOCYTES % (AUTO) 10.4 %; NEUTROPHILS # (AUTO) 9.5 10^3/uL (1.5-6.6); NEUTROPHILS % (AUTO) 80.7 %; PLT - PLATELET COUNT 332 10^3/uL (130-450); RED BLOOD COUNT 3.07 10^6/uL (4.70-6.10); RED CELL DISTRIBUTION WIDTH 13.1 % (12.0-15.0); WHITE BLOOD COUNT 11.7 x10^3/uL (4.8-10.8)
[2019-07-13 11:24] LABS: ALBUMIN 3.4 g/dL (3.2-5.5); ALBUMIN/GLOBULIN RATIO 0.9 (1.0-2.2); BILIRUBIN,TOTAL 1.2 mg/dL (0.2-1.0); CALCIUM 8.5 mg/dL (8.5-10.3); CREATININE 0.7 mg/dL (0.6-1.2); TOTAL PROTEIN 7.3 g/dL (6.7-8.2)
--- NOTE | 2019-07-13 12:11 | CT Report ---
Reason: aphasia and general weakness this morning Procedure Date: 07/13/2019 Accession Number: [id number] / [id number] Procedure: CT - Head W/O Stroke Protocol CPT Code: Final Report FULL RESULT: CT HEAD WITHOUT CONTRAST INDICATION: 84-year-old male. Aphasia and general weakness this a.m. Concern for acute CVA. TECHNIQUE: Sequential 5 mm axial images were obtained through the brain. In accordance with CT protocol optimization, one or more of the following dose reduction techniques were utilized for this exam: automated exposure control, adjustment of mA and/or KV based on patient size, or use of iterative reconstructive technique. COMPARISON: 01/03/2019. FINDINGS: There is generalized prominence of the cerebral cortical sulci and cerebellar folia, stable. Again demonstrated is moderate to marked third/lateral ventriculomegaly, unchanged. The temporal horns of the lateral ventricles remain markedly dilated. There is multifocal white matter disease in the supratentorial brain, likely representing chronic microangiopathy. There has been interval development of a small area of abnormal hypodensity involving the cortex and underlying white matter in the lateral aspect of the posterior left frontal lobe (see images 23 through 25 of series #8). This includes the left precentral gyrus. Imaging findings are consistent with infarction, age indeterminant but presumably acute to subacute. There is mild localized mass effect manifested as cortical sulcal effacement. The left MCA territory otherwise appears spared. There is no intracranial hemorrhage or abnormal extra-axial fluid collection. There is no mass-effect or midline shift. Heavily calcified atherosclerotic plaque is noted in the carotid siphons in both vertebral arteries. The middle ear cavities and mastoid air cells appear clear. The imaged paranasal sinuses are essentially clear. IMPRESSION: 1. Small area of recent (presumably acute or early subacute) infarction in the lateral aspect, posterior left frontal lobe, including the left precentral gyrus. This extends over a distance of roughly 1.3 x 1.85 cm. This is in the left MCA territory. 2. The left MCA territory is otherwise spared. The ASPECTS appears to be equal 9 (on the left) 3. There is no intracranial hemorrhage. The critical test notification system was initiated by Dr. Kemal Storm at 11:30 AM on 07/13/2019. The above critical test findings were discussed with Dr. Socrates Watters by Dr. Kemal Storm at 12:09 PM on 07/13/2019.
--- NOTE | 2019-07-13 12:34 | XRAY Report ---
Reason: general weakness Procedure Date: 07/13/2019 Accession Number: [id number] / [id number] Procedure: XR - Chest 1 View X-Ray CPT Code: 04397 Final Report FULL RESULT: EXAM: CHEST RADIOGRAPHY EXAM DATE: 07/13/2019 12:07 PM. CLINICAL HISTORY: General weakness. COMPARISON: CHEST 2 VIEW 01/09/2019 11:10 PM. TECHNIQUE: 1 view. FINDINGS: Lungs/Pleura: Low lung volumes with mild crowding/congestion small amount of bronchial wall thickening centrally. Minimal reticulation noted at the bases. No lobar consolidation. No large effusion. No pneumothorax. Mediastinum: Cardiac silhouette size appears stable. Mild vascular calcifications. Other: None. IMPRESSION: 1. Mildly low lung volumes with mild crowding/congestion. 2. Small amount of bronchial wall thickening centrally, suggesting airways disease. 3. Minimal reticulation noted at the bases, likely small amount of atelectasis or scarring. No lobar consolidation or large effusions. RADIA
[2019-07-13] MEDS ORDERED: SODIUM CHLORIDE FLUSH 0.9% 10 ML SYRINGE IVP PRN (13:05)
[2019-07-13] MEDS ORDERED: ACETAMINOPHEN 325 MG TABLET PO PRN (13:05)
[2019-07-13] MEDS ORDERED: ONDANSETRON ODT 4 MG TABLET TL PRN (13:05)
[2019-07-13] MEDS ORDERED: ONDANSETRON 4 MG/2 ML VIAL IVP PRN (13:05)
--- NOTE | 2019-07-13 13:08 | CT Report ---
Reason: aphasia and weakness Procedure Date: 07/13/2019 Accession Number: [id number] / [id number] Procedure: CT - ANGIO NECK W CPT Code: Final Report FULL RESULT: CT ANGIOGRAM NECK INDICATION: 84-year-old male. Aphasia and weakness. Has a small left MCA infarction on head CT. Please assess. TECHNIQUE: 80 cc of Optiray 320 contrast were injected at a rapid rate through a large bore, right antecubital intravenous catheter. The neck was scanned helically and the data was reconstructed into 0.5 mm axial images. In addition, MIP reconstructions have been generated in multiple projections to allow better assessment of the extracranial carotid and vertebral arteries. Significant arterial stenoses will be assessed using NASCET type measurements. In accordance with CT protocol optimization, one or more of the following dose reduction techniques were utilized for this exam: automated exposure control, adjustment of mA and/or KV based on patient size, or use of iterative reconstructive technique. COMPARISON: None. FINDINGS: There is normal branching of the aortic arch. There is calcified plaque at the origin of the left subclavian artery with associated mild narrowing. The majority of the proximal left subclavian artery is excluded in the field of view provided. No obvious hemodynamically significant stenosis is seen. There is calcified plaque at the origin of the left common carotid artery without significant stenosis. The innominate artery appears widely patent. Right carotid artery: There is calcified plaque at the carotid bifurcation with extension into the carotid bulb. The lumen in the distal common carotid artery, just proximal to the bifurcation is reduced to about 4.3 mm. More proximally the carotid artery measures about 8.2 mm diameter. This is consistent with a 50% NASCET type stenosis. There is mild narrowing in the distal bulb. The extracranial ICA is otherwise unremarkable. Left carotid artery: There is heavily calcified plaque at the carotid bifurcation that extends into the carotid bulb. In the distal common carotid artery, just proximal to the bifurcation heavily calcified plaque reduces the luminal diameter to about 1.8 mm. More proximally the ICA measures about 8 mm. This is consistent with a 75-80% NASCET type stenosis. In addition, there appears to be at least 70% narrowing in the mid carotid bulb. The extracranial ICA is otherwise unremarkable. Right vertebral artery: There is minor calcified plaque at the origin without associated stenosis. The V1 segment is partially obscured due to artifact. Grossly no pathology is demonstrated. The V2 segment is patent throughout. Beam-hardening artifact from metal dental hardware limits assessment of the V2-V3 junction. Grossly no pathology is demonstrated. The V3 segment appears patent. Left vertebral artery: Patent from origin to distal V3 segment without significant focal narrowing. IMPRESSION: 1. 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 In addition, there is mild narrowing in the carotid bulb. 2. 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 3. No evidence of dissection or significant stenosis in the extracranial vertebral arteries.
--- NOTE | 2019-07-13 13:13 | HISTORY & PHYSICAL EXAMINATION ---
Chief Complaint - Chief Complaint Chief Complaint: altered mental status with left body gaze History of Present Illness - Admitted From Admitted From:: Home/ER - History Obtained From Records Reviewed: [facility] History obtained from: Jose Alfredo and Dr. Watters Exam Limitations: patient is silent now - History of Present Illness HPI Comment/Other: He is an 84-year-old male who stroke risk factors include male sex, history of HTN, current diabetes mellitus, hyperlipidemia. He is been gradually gradually more demented since approximately 2009. By 2011 he was no longer able to drive and could no longer pay bills. His daughter moved in to take care of her mother and father in 2013. His last year, and his daughter is been taking care of him since. He is able to feed himself, dress himself, and is supposed t o be walking with a walker but forgets to use it. He has balance issues. He has chronic atrial fibrillation and is not on anticoagulation other than aspirin. He was in [place] on 07/10 to see his grandaughter in a play and his daughter noticed he was so tired he didn't want to walk. So on the way home, they stopped in [facility] and he was with "normal labs" and was told he was dehydrated and sent home. Yesterday, 07/12, she noticed that he was getting slower to walk up the stairs in their house. No specific hemiplegia, dysarthria but he was also slow to speak. There was no fever, chills, cough, abdominal pain. Appetite was the same as usual. No change in bowel habits. He has chronic urinary incontinence. He went to bed as usual, and she went to wake him up to 10 this morning. She has noticed that he gazes off to the left. Is nonverbal. And really cannot get up to walk. He is not trembling, or off-balance, does not seem to understand what to do to get up and walk. He was seen by Dr. Watters where his temperature is 99.3. Blood pressure 127/95. He has evidence of body neglect in that he just does not look to his left. He has moderate to marked third/lateral ventriculomegaly that is unchanged. The temporal horns of the lateral ventricles remain markedly dilated . 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 Since his last CAT scan he is at interval development of a small area of abnormal hypodensity involving the cortex and underlying white matter in the lateral aspect of the posterior left frontal lobe including the left precentral gyrus. This is in the left middle cerebral territory. Extends over a distance of 1.3 x 1.85 cm. The other left middle cerebral artery territory is otherwise spared. Of note, he appears to have atrial fibrillation on EKG. This is a new diagnosis for him. He was seen in the emergency room in December 2018, that EKG was interpreted as atrial fibrillation by the computer. However the ER physician over read that and felt it was artifact. As such the patient is now admitted for stroke. History - Past Medical History Cardiovascular: reports: Hypertension, Atrial fibrillation Respiratory: reports: Shortness of breath Neuro: reports: Alzhiemer's Endocrine/Autoimmune: reports: Type 2 diabetes (with neuropathy) GI: reports: Other (diverticulosis) : reports: Benign prostate hypertrophy (with elevated PSA, nodule 2008. Seen by MD Uzair), Incontinence, Frequency, Other (erectile dysfunction, Prostate cancer diagnosis, 02/2013. PSA 20, biopsy 04/2014. Lalitha 6. Lupron since 6.) HEENT: reports: Chronic vision loss, Other (cataracts. He was supposed to get a referral to Dr. Bao Padilla for surgery) Psych: reports: Depression (he misses his tremendously) Musculoskeletal: reports: Osteoarthritis Derm: reports: Psoriasis MRSA Hx?: No Other Past Medical History: 1. Iron deficiency anemia of unknow cause w nml B12, Folate 08/2017. Responded to iron infusion. Since he had alzheimers's and was declining. family opted not to do colonoscopy or EGD. 2. History of alcohol abuse that stopped in 2015. - Family & Social History Family History Comment/Other: Mom at 80 of an unknown cancer, and Dad at 66 but he doesn't kow what of but he did have DM. Sister at 72 of pancreatic cancer, and brother at 80 of melanoma. 4 kids. one son with alcohol abuse Living arrangement: At home Living Situation: With caregiver(s) (daughter. She moved in 2013) Social History Notes: last year. 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 He never smoked. Drank heavily all his life. Maritinis initially and then he switched to 4-5 glasses of wine daily. His daughter cut him off in 2015 when he couldn't remember how much he drank. - Substance History Use: Uses substance without health or social issues: NONE Abuse: Recurrent use of substance despite neg consequences: NONE Dependence: Experiences withdrawal or developed tolerances: NONE - POLST Patient has POLST: No POLST Status: DNR Meds/Allgy - Home Medications Home Medications: Ambulatory Orders Medication Instructions Recorded Confirmed Metformin HCl [Fortamet] 1,000 mg PO DAILY 12/11/13 02/27/19 Aspirin [Aspir 81] 81 mg PO DAILY 03/12/14 02/27/19 Insulin Glargine [Lantus Solostar] 22 units SUBQ DAILY 03/12/14 02/27/19 Insulin Glulisine [Apidra Solostar] 7 unit SQ AC 03/12/14 02/27/19 Losartan [Cozaar] 25 mg PO BID 03/12/14 02/27/19 Multivit-Min/FA/Lycopen/Lutein 1 tab PO DAILY 11/07/18 02/27/19 [Centrum Silver Men Tablet] Vitamin B Complex/Folic Acid 1,000 mg PO DAILY 11/07/18 02/27/19 [B-Complex Tablet] - Allergies Allergies/Adverse Reactions: Allergies Allergy/AdvReac Type Severity Reaction Status Date / Time No Known Drug Allergies Allergy Verified 07/13/19 11:01 Review of Systems - Constitutional Constitutional: reports: Other (ROS is from his daughter. He is unable to answer these questions.). denies: Fatigue, Fever, Chills - Eyes Eyes: reports: Blurred vision, Vision loss - Ears, Nose & Throat Ears, Nose & Throat: reports: Hearing loss. denies: Nasal pain, Nasal discharge, Sore throat, Hoarseness - Cardiovascular Cariovascular: reports: Irregular heart rate. denies: Palpitations, Chest pain, Edema, Lightheadedness, Syncope, Exertional dyspnea, Decr. exercise tolerance - Respiratory Respiratory: denies: Cough, Sputum production, Wheezing, Snoring, SOB with exertion - Gastrointestinal Gastrointestinal: denies: Abdominal pain, Abdominal distention, Constipation, Diarrhea - Genitourinary Genitourinary: reports: Urgency, Incontinence, Nocturia. denies: Dysuria, Frequency, Flank pain - Musculoskeletal Musculoskeletal: reports: Stiffness, Joint pain. denies: Muscle pain, Back pain, Muscle aches - Integumentary Integumentary: denies: Rash, Pruritis, Lesions, Dryness - Neurological Neurological: reports: Memory problems, Pre-existing deficit. denies: General weakness, Focal weakness - Psychiatric Psychiatric: reports: Depression. denies: Suicidal - Endocrine Endocrine: denies: Polyuria, Polydypsia, Polyphagia - Hematologic/Lymphatic Hematologic/Lymphatic: reports: Anemia Prior Level of Functionality: he stopped driving in 2009, stopped paying bills in 2013. Started using a walker in 2014 for balance, rarely uses it. Is incontinent of urine. Able to feed himself, and dress himself, but needs to be prompted to do so. Exam - Vital Signs Reviewed Vital Signs: Yes Vital Signs: Vital Signs x48h Temp Pulse Resp BP Pulse Ox 07/13/19 10:52 99.3 C H 80 18 127/95 H 100 - Physical Exam General Appearance: positive: No acute distress, Other (Sitting upright in the emergency room kiara, silent, does not look when I walk up to him. Gaze is deviated to the left, head is turned to the left. When I walk to the right he does not acknowledge.) Eyes Bilateral: positive: PERRL, EOMI ENT: positive: Dry mucous membranes, Other (unshaven) Neck: positive: No JVD. negative: Stiff neck Respiratory: positive: Chest non-tender, Other (slow shallow respiration, diminished at bases). negative: Wheezes, Rales, Rhonchi Cardiovascular: positive: Irregularly irregular, Systolic murmur. negative: Gallop/S4, Friction rub Abdomen: positive: Non-tender, No organomegaly, Nml bowel sounds, No distention, Other (bilateral inguinal hernias) Skin: positive: Warm, Dry Extremities: positive: Non-tender, Full ROM, No pedal edema Neurologic/Psychiatric: positive: Motor nml (in that withdraws to painful stimuli with arms and legs, no hemiplegia), Disoriented to person, Disoriented to place, Disoriented to time, Slurred/abnml speech, Other (noverbal, staring to the left even though his stroke on CT is on the left). negative: CN's nml (2-1 2) (nonverbal, turning head to left), Facial droop Conclusion/Plan - Problem List (1) Acute ischemic left MCA stroke Conclusion/Plan: This gentleman does have atrial fibrillation, Unknown duration, not anticoagulated. However the CT of the head is being interpreted as ischemic not embolic. He does have all the risk factors for ischemic stroke Plan: Continue aspirin Add plavix Add a statin Allow permissive hypertension of greater than 180 systolic if it occurs PT/OT evaluation (2) Controlled type 2 diabetes mellitus Conclusion/Plan: resume lantus but not at 22 units. Will resume at 10 units since he is not eating much. continue SS short acting insulin. check A1c Qualifiers: Diabetes mellitus residential insulin use: with residential use Diabetes mellitus complication status: with neurologic complications Diabetes mellitus complication detail: with polyneuropathy Qualified Code(s): E11.42 - Type 2 diabetes mellitus with diabetic polyneuropathy; Z79.4 - MCFP (current) use of insulin (3) Chronic anemia Conclusion/Plan: check anemia panel check FOBT (4) Atrial fibrillation Conclusion/Plan: unknow duration. Rate is controlled. Can't anticoagulate for 48-72 hours in view of stroke. will treat then. check ECHO Qualifiers: Atrial fibrillation type: other persistent Qualified Code(s): I48.19 - Other persistent atrial fibrillation (5) Alzheimer disease Conclusion/Plan: Some of his dementia may be alcohol abuse related as well. But in any case this is a diagnosis that he carries. With his stroke, Alzheimer's disease, daughter has felt that his previous CODE STATUS of full code should not be changed to DO NOT RESUSCITATE. We will monitor for sundowning. Qualifiers: Alzheimer's disease onset: late-onset Dementia behavioral disturbance: without behavioral disturbance Qualified Code(s): G30.1 - Alzheimer's disease with late onset; F02.80 - Dementia in other diseases classified elsewhere without behavioral disturbance - Lab Results Lab results reviewed: Yes Fish Bones: 07/13/19 11:02 07/13/19 11:02 - Diagnostic Imaging Results Diagnostic Imaging Results Comments: CHEST RADIOGRAPHY EXAM DATE: 07/13/2019 12:07 PM. CLINICAL HISTORY: General weakness. COMPARISON: CHEST 2 VIEW 01/09/2019 11:10 PM. TECHNIQUE: 1 view. FINDINGS: Lungs/Pleura: Low lung volumes with mild crowding/congestion small amount of bronchial wall thickening centrally. Minimal reticulation noted at the bases. No lobar consolidation. No large effusion. No pneumothorax. Mediastinum: Cardiac silhouette size appears stable. Mild vascular calcifications. Other: None. IMPRESSION: 1. Mildly low lung volumes with mild crowding/congestion. 2. Small amount of bronchial wall thickening centrally, suggesting airways disease. 3. Minimal reticulation noted at the bases, likely small amount of atelectasis or scarring. No lobar consolidation or large effusions CT HEAD WITHOUT CONTRAST INDICATION: 84-year-old male. Aphasia and general weakness this a.m. Concern for acute CVA. TECHNIQUE: Sequential 5 mm axial images were obtained through the brain. In accordance with CT protocol optimization, one or more of the following dose reduction techniques were utilized for this exam: automated exposure control, adjustment of mA and/or KV based on patient size, or use of iterative reconstructive technique. COMPARISON: 01/03/2019. FINDINGS: There is generalized prominence of the cerebral cortical sulci and cerebellar folia, stable. Again demonstrated is moderate to marked third/lateral ventriculomegaly, unchanged. The temporal horns of the lateral ventricles remain markedly dilated. There is multifocal white matter disease in the supratentorial brain, likely representing chronic microangiopathy. There has been interval development of a small area of abnormal hypodensity involving the cortex and underlying white matter in the lateral aspect of the posterior left frontal lobe (see images 23 through 25 of series #8). This includes the left precentral gyrus. Imaging findings are consistent with infarction, age indeterminant but presumably acute to subacute. There is mild localized mass effect manifested as cortical sulcal effacement. The left MCA territory otherwise appears spared. There is no intracranial hemorrhage or abnormal extra-axial fluid collection. There is no mass-effect or midline shift. Heavily calcified atherosclerotic plaque is noted in the carotid siphons in both vertebral arteries. The middle ear cavities and mastoid air cells appear clear. The imaged paranasal sinuses are essentially clear. IMPRESSION: 1. Small area of recent (presumably acute or early subacute) infarction in the lateral aspect, posterior left frontal lobe, including the left precentral gyrus. This extends over a distance of roughly 1.3 x 1.85 cm. This is in the left MCA territory. 2. The left MCA territory is otherwise spared. The ASPECTS appears to be equal 9 (on the left) 3. There is no intracranial hemorrhage. CT ANGIOGRAM NECK INDICATION: 84-year-old male. Aphasia and weakness. Has a small left MCA infarction on head CT. Please assess. TECHNIQUE: 80 cc of Optiray 320 contrast were injected at a rapid rate through a large bore, right antecubital intravenous catheter. The neck was scanned helically and the data was reconstructed into 0.5 mm axial images. In addition, MIP reconstructions have been generated in multiple projections to allow better assessment of the extracranial carotid and vertebral arteries. Significant arterial stenoses will be assessed using NASCET type measurements. In accordance with CT protocol optimization, one or more of the following dose reduction techniques were utilized for this exam: automated exposure control, adjustment of mA and/or KV based on patient size, or use of iterative reconstructive technique. COMPARISON: None. FINDINGS: There is normal branching of the aortic arch. There is calcified plaque at the origin of the left subclavian artery with associated mild narrowing. The majority of the proximal left subclavian artery is excluded in the field of view provided. No obvious hemodynamically significant stenosis is seen. There is calcified plaque at the origin of the left common carotid artery without significant stenosis. The innominate artery appears widely patent. Right carotid artery: There is calcified plaque at the carotid bifurcation with extension into the carotid bulb. The lumen in the distal common carotid artery, just proximal to the bifurcation is reduced to about 4.3 mm. More proximally the carotid artery measures about 8.2 mm diameter. This is consistent with a 50% NASCET type stenosis. There is mild narrowing in the distal bulb. The extracranial ICA is otherwise unremarkable. Left carotid artery: There is heavily calcified plaque at the carotid bifurcation that extends into the carotid bulb. In the distal common carotid artery, just proximal to the bifurcation heavily calcified plaque reduces the luminal diameter to about 1.8 mm. More proximally the ICA measures about 8 mm. This is consistent with a 75-80% NASCET type stenosis. In addition, there appears to be at least 70% narrowing in the mid carotid bulb. The extracranial ICA is otherwise unremarkable. Right vertebral artery: There is minor calcified plaque at the origin without associated stenosis. The V1 segment is partially obscured due to artifact. Grossly no pathology is demonstrated. The V2 segment is patent throughout. Beam-hardening artifact from metal dental hardware limits assessment of the V2-V3 junction. Grossly no pathology is demonstrated. The V3 segment appears patent. Left vertebral artery: Patent from origin to distal V3 segment without significant focal narrowing. IMPRESSION: 1. 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 In addition, there is mild narrowing in the carotid bulb. 2. 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 3. No evidence of dissection or significant stenosis in the extracranial vertebral arteries. CT ANGIOGRAM HEAD AND POSTCONTRAST HEAD CT INDICATION: 84-year-old male. Aphasia and weakness. Has small left frontal lobe infarction on head CT. Please assess. TECHNIQUE: 80 cc of Optiray 320 contrast were injected at a rapid rate through a large-bore antecubital intravenous catheter. The head was scanned helically during arterial phase. The data was reconstructed into 0.5 mm axial images. In addition, MIP reconstructions have been generated in multiple projections to allow better assessment of the intracranial arteries. Postcontrast head CT Sequential 5 mm axial images were obtained through the brain following the CT angiogram In accordance with CT protocol optimization, one or more of the following dose reduction techniques were utilized for this exam: automated exposure control, adjustment of mA and/or KV based on patient size, or use of iterative reconstructive technique. COMPARISON: None. FINDINGS: CT angiogram head There is extensive calcified atherosclerotic plaque in the carotid siphons bilaterally; however, no hemodynamically significant ICA stenosis is identified. No ICA aneurysm is demonstrated. The A1 segments of the anterior cerebral arteries are codominant. An anterior communicating artery is demonstrated. There appears to be good filling of the A2 and distal HANNAH branches bilaterally. No obvious HANNAH branch occlusion is demonstrated. No MCA aneurysm is identified. The main MCA branches appear widely patent bilaterally without evidence of a hemodynamically significant stenosis or obvious main branch occlusion. Posterior circulation: There is circumferential calcified plaque in the V4 segment of the right vertebral artery, proximal to the takeoff of the right PICA that appears to be giving rise to greater than 50% diameter stenosis. The right PICA is patent. The distal V4 segment is small but patent. There is calcified plaque scattered throughout the proximal and mid V4 segment left vertebral artery without obvious hemodynamically significant stenosis. There is filling of the left PICA. No aneurysm is seen at either PICA origin. The basilar artery, superior cerebellar arteries and the left posterior cerebral artery are patent without significant focal narrowing. The P1 segment for of the right posterior cerebral artery is developmentally absent. There is a large right posterior communicating artery that appears to be supplying the P2 and distal right [employer] branches. This represents a known anatomical variant ( origin of the right [employer]). There appears to be a small left posterior communicating artery. No aneurysms are seen arising from the basilar artery trunk or apex. Postcontrast head CT No enhancing space-occupying mass lesion is demonstrated. There appears to be good intravascular contrast enhancement in the superior sagittal sinus and the right transverse and sigmoid sinuses. The left transverse and sigmoid sinuses are severely hypoplastic. The deep venous structures appear to be patent. IMPRESSION: 1. There is fairly extensive calcified atherosclerotic plaque in the carotid siphons bilaterally; however, no associated hemodynamically significant ICA stenosis is demonstrated. 2. No evidence of occlusion or hemodynamically significant narrowing in the main branch of the left MCA. 3. Circumferential calcified plaque in the intradural right vertebral artery appears to be giving rise to at least 50%, possibly greater narrowing. This is proximal to the takeoff of the right PICA. - EKG Results EKG Interpreted Independently: No EKG Comparison: Changed from prior EKG (new afib) Core Measures - Anticipated LOS I expect patient to be DC'd or transferred within 96 hours.: Yes - DVT/VTE - Prophylaxis VTE/DVT Device ordered at admit?: Yes
--- NOTE | 2019-07-13 13:21 | CT Report ---
Reason: aphasia and weakness Procedure Date: 07/13/2019 Accession Number: [id number] / [id number] Procedure: CT - ANGIO HEAD W/WO CPT Code: Final Report FULL RESULT: CT ANGIOGRAM HEAD AND POSTCONTRAST HEAD CT INDICATION: 84-year-old male. Aphasia and weakness. Has small left frontal lobe infarction on head CT. Please assess. TECHNIQUE: 80 cc of Optiray 320 contrast were injected at a rapid rate through a large-bore antecubital intravenous catheter. The head was scanned helically during arterial phase. The data was reconstructed into 0.5 mm axial images. In addition, MIP reconstructions have been generated in multiple projections to allow better assessment of the intracranial arteries. Postcontrast head CT Sequential 5 mm axial images were obtained through the brain following the CT angiogram In accordance with CT protocol optimization, one or more of the following dose reduction techniques were utilized for this exam: automated exposure control, adjustment of mA and/or KV based on patient size, or use of iterative reconstructive technique. COMPARISON: None. FINDINGS: CT angiogram head There is extensive calcified atherosclerotic plaque in the carotid siphons bilaterally; however, no hemodynamically significant ICA stenosis is identified. No ICA aneurysm is demonstrated. The A1 segments of the anterior cerebral arteries are codominant. An anterior communicating artery is demonstrated. There appears to be good filling of the A2 and distal HANNAH branches bilaterally. No obvious HANNAH branch occlusion is demonstrated. No MCA aneurysm is identified. The main MCA branches appear widely patent bilaterally without evidence of a hemodynamically significant stenosis or obvious main branch occlusion. Posterior circulation: There is circumferential calcified plaque in the V4 segment of the right vertebral artery, proximal to the takeoff of the right PICA that appears to be giving rise to greater than 50% diameter stenosis. The right PICA is patent. The distal V4 segment is small but patent. There is calcified plaque scattered throughout the proximal and mid V4 segment left vertebral artery without obvious hemodynamically significant stenosis. There is filling of the left PICA. No aneurysm is seen at either PICA origin. The basilar artery, superior cerebellar arteries and the left posterior cerebral artery are patent without significant focal narrowing. The P1 segment for of the right posterior cerebral artery is developmentally absent. There is a large right posterior communicating artery that appears to be supplying the P2 and distal right TURBO GENERATOR OILER branches. This represents a known anatomical variant ( origin of the right TURBO GENERATOR OILER). There appears to be a small left posterior communicating artery. No aneurysms are seen arising from the basilar artery trunk or apex. Postcontrast head CT No enhancing space-occupying mass lesion is demonstrated. There appears to be good intravascular contrast enhancement in the superior sagittal sinus and the right transverse and sigmoid sinuses. The left transverse and sigmoid sinuses are severely hypoplastic. The deep venous structures appear to be patent. IMPRESSION: 1. There is fairly extensive calcified atherosclerotic plaque in the carotid siphons bilaterally; however, no associated hemodynamically significant ICA stenosis is demonstrated. 2. No evidence of occlusion or hemodynamically significant narrowing in the main branch of the left MCA. 3. Circumferential calcified plaque in the intradural right vertebral artery appears to be giving rise to at least 50%, possibly greater narrowing. This is proximal to the takeoff of the right PICA.
[2019-07-13] MEDS ORDERED: SODIUM CHLORIDE 0.9% 1,000 ML IV SCH (14:00)
[2019-07-13] MEDS: SODIUM CHLORIDE FLUSH 0.9% 10 ML SYRINGE IVP SCH (16:23)
[2019-07-13 18:19] LABS: HB2 TOTAL 9.8 g/dL; HEMOGLOBIN A1C 0.52 g/dL
[2019-07-13] MEDS: INSULIN ASPART 300 UNIT/3 ML PEN SUBQ SCH (21:36)
[2019-07-13] MEDS ORDERED: IOVERSOL 320 100 ML VIAL IVP ONE (21:59)
--- NOTE | 2019-07-13 22:11 | Ultrasound Report ---
Reason: new onset afib Procedure Date: 07/13/2019 Accession Number: [id number] / [id number] Procedure: US - Duplex Ext Veins Bilateral CPT Code: Final Report FULL RESULT: EXAM: BILATERAL LOWER EXTREMITY VENOUS ULTRASOUND EXAM DATE: 07/13/2019 09:31 PM. CLINICAL HISTORY: New onset atrial fibrillation. COMPARISON: None. TECHNIQUE: Real-time sonographic vascular imaging was performed by the [employer] financial developer through the lower extremities utilizing both color-flow and Doppler spectral analysis. Multiple patient financial representative static images were saved for review. FINDINGS: Right: Common Femoral Vein (CFV): Normal. CFV-GSV Junction: Normal. Profunda Femoral Vein (PFV): Normal. Femoral Vein (FV) Prox: Normal. Femoral Vein (FV) Mid: Normal. Femoral Vein (FV) Dist: Normal. Popliteal Vein: Normal. Posterior Tibial Veins: Normal. Peroneal Veins: Limited visualization. Left: Common Femoral Vein (CFV): Normal. CFV-GSV Junction: Normal. Profunda Femoral Vein (PFV): Normal. Femoral Vein (FV) Prox: Normal. Femoral Vein (FV) Mid: Normal. Femoral Vein (FV) Dist: Normal. Limited visualization. Popliteal Vein: Normal. Limited visualization. Posterior Tibial Veins: Normal. Peroneal Veins: Limited visualization. Other: Slow flow is seen in the bilateral lesser saphenous veins. Calcifications seen. Bilateral Villegas's cysts, the right measures 1.8 x 2.2 x 1.5 cm, left measures 3.9 x 0.6 x 1.2 cm. Technically limited exam. Stiff legs. Motion artifact limits the exam. IMPRESSION: No evidence for deep venous thrombosis bilaterally. Limited as above. See above. Bilateral Villegas's cysts. RADIA
[2019-07-13] MEDS: INSULIN GLARGINE 300 UNIT/3 ML PEN SUBQ SCH (22:19)
[2019-07-13 22:37] LABS: GLUCOSE, URINE (UA) NEGATIVE (NEGATIVE); KETONES,URINE (UA) 40 mg/dL (NEGATIVE); LEUKOCYTE ESTERASE, URINE NEGATIVE (NEGATIVE); NITRITE,URINE NEGATIVE (NEGATIVE); OCCULT BLOOD,URINE TRACE-INTA (NEGATIVE); PROTEIN,URINE TRACE mg/dL (NEGATIVE); UROBILINOGEN,URINE 0.2 (NORMAL) E.U./dL (NORMAL)
[2019-07-13 22:42] LABS: CLARITY,URINE CLEAR (CLEAR)
[2019-07-13 22:43] LABS: BILIRUBIN,URINE NEGATIVE (NEGATIVE); ICTOTEST,URINE NEGATIVE
[2019-07-14] MEDS: SODIUM CHLORIDE FLUSH 0.9% 10 ML SYRINGE IVP SCH ×3 (02:47→16:10)
[2019-07-14] MEDS ORDERED: ACETAMINOPHEN 1,000 MG/100 ML 100 ML IV PRN (08:18)
[2019-07-14] MEDS: INSULIN ASPART 300 UNIT/3 ML PEN SUBQ SCH ×4 (09:17→22:35)
--- NOTE | 2019-07-14 15:04 | PROVIDER PROGRESS NOTE ---
Subjective - Prog Note Date Prog Note Date: 07/14/19 Prog Note Time: 15:10 - Subjective Subjective: he is sleepy. Last night angry and needed one dose of haldol. Can't swallow today. Was able to yesterday. Current Medications - Current Medications Current Medications: Active Medications Acetaminophen (Tylenol) 650 mg PO Q4HR PRN PRN Reason: Pain 1 to 4 Last Admin: 07/13/19 17:09 Dose: 650 mg Acetaminophen (Ofirmev) 100 mls @ 400 mls/hr IV Q6HR PRN PRN Reason: PAIN Insulin Aspart (Novolog) 1 - 9 unit SUBQ 0800,1200,1700,2100 XI; Protocol Last Admin: 07/14/19 13:09 Dose: Not Given Insulin Glargine (Lantus Solostar) 10 unit SUBQ QPM XI Last Admin: 07/13/19 22:19 Dose: 10 unit Ondansetron HCl (Zofran Inj) 4 mg IVP Q6HR PRN PRN Reason: Nausea / Vomiting Ondansetron HCl (Zofran Odt) 4 mg TL Q6HR PRN PRN Reason: Nausea / Vomiting Sodium Chloride (Normal Saline Flush 0.9%) 10 ml IVP PRN PRN PRN Reason: NEEDED PER PROVIDER ORDERS Sodium Chloride (Normal Saline Flush 0.9%) 10 ml IVP 0100,0900,1700 XI Last Admin: 07/14/19 13:46 Dose: 10 ml Aspirin [Aspir 81] 81 mg PO DAILY 03/12/14 Insulin Glargine [Lantus Solostar] 22 units SUBQ DAILY 03/12/14 Losartan [Cozaar] 25 mg PO DAILY 03/12/14 Multivit-Min/FA/Lycopen/Lutein [Centrum Silver Men Tablet] 1 tab PO DAILY 11/07/18 Cyanocobalamin (Vitamin B-12) [Vitamin B-12 (500 mcg sublingual)] 500 mcg PO DAILY 07/14/19 Insulin Lispro [Humalog Kwikpen U-100] 7 units SQ TIDWM 07/14/19 Metformin HCl 1,000 mg PO DAILY 07/14/19 Objective - Vital Signs/Intake & Output Reviewed Vital Signs: Yes Vital Signs: Vital Signs x48h Temp Pulse Resp BP Pulse Ox 07/14/19 07:55 37.2 C 51 L 17 113/51 L 94 Intake & Output: Intake & Output 07/11/19 07/12/19 07/13/19 07/14/19 23:59 23:59 23:59 23:59 Intake Total 1050 1180 Output Total 1040 Balance 10 1180 - Objective General Appearance: positive: No acute distress, Lethargic ENT: positive: Other (right facial droop) Neck: positive: No JVD. negative: Stiff neck Respiratory: positive: Chest non-tender, No respiratory distress, Rhonchi. negative: Wheezes, Rales Cardiovascular: positive: Irregularly irregular, Systolic murmur. negative: Gallop/S4, Friction rub Abdomen: positive: Non-tender, No organomegaly, Nml bowel sounds, No distention Skin: positive: Warm, Dry Neurologic/Psychiatric: positive: Disoriented to person, Disoriented to place, Disoriented to time, Facial droop, Slurred/abnml speech. negative: CN's nml (2- 12), Motor nml (right facial droop, right hemiplegia) - Lab Results Fish Bones: 07/13/19 11:02 07/13/19 11:02 Other Labs: Lab Results x24hrs 07/14/19 07/14/19 07/13/19 Range/Units 12:05 07:54 22:30 POC Whole Bld Glucose 91 101 H (70 - 100) mg/dL Glycated Hemoglobin (4.6-6.2) % Estim Average Glucose (70-100) Urine Color YELLOW Urine Clarity CLEAR (CLEAR) Urine pH 5.0 (5.0-7.5) PH Ur Specific [place] 1.025 (1.002-1.030) Urine Protein TRACE (NEGATIVE) mg/dL Urine Glucose (UA) NEGATIVE (NEGATIVE) mg/dL Urine Ketones 40 H (NEGATIVE) mg/dL Urine Occult Blood TRACE-INTA (NEGATIVE) Urine Nitrite NEGATIVE (NEGATIVE) Urine Bilirubin NEGATIVE (NEGATIVE) Urine Urobilinogen 0.2 (NORMAL) (NORMAL) E.U./dL Ur Leukocyte Esterase NEGATIVE (NEGATIVE) Ur Microscopic Review NOT INDICATED Urine Culture Comments NOT INDICATED 07/13/19 07/13/19 07/13/19 Range/Units 21:17 16:53 12:16 POC Whole Bld Glucose 117 H 95 92 (70 - 100) mg/dL Glycated Hemoglobin (4.6-6.2) % Estim Average Glucose (70-100) Urine Color Urine Clarity (CLEAR) Urine pH (5.0-7.5) PH Ur Specific [place] (1.002-1.030) Urine Protein (NEGATIVE) mg/dL Urine Glucose (UA) (NEGATIVE) mg/dL Urine Ketones (NEGATIVE) mg/dL Urine Occult Blood (NEGATIVE) Urine Nitrite (NEGATIVE) Urine Bilirubin (NEGATIVE) Urine Urobilinogen (NORMAL) E.U./dL Ur Leukocyte Esterase (NEGATIVE) Ur Microscopic Review Urine Culture Comments 07/13/19 Range/Units 11:02 POC Whole Bld Glucose (70 - 100) mg/dL Glycated Hemoglobin 7.0 H (4.6-6.2) % Estim Average Glucose 154 H (70-100) Urine Color Urine Clarity (CLEAR) Urine pH (5.0-7.5) PH Ur Specific [place] (1.002-1.030) Urine Protein (NEGATIVE) mg/dL Urine Glucose (UA) (NEGATIVE) mg/dL Urine Ketones (NEGATIVE) mg/dL Urine Occult Blood (NEGATIVE) Urine Nitrite (NEGATIVE) Urine Bilirubin (NEGATIVE) Urine Urobilinogen (NORMAL) E.U./dL Ur Leukocyte Esterase (NEGATIVE) Ur Microscopic Review Urine Culture Comments ABX Reporting Has patient been on IV antibiotics over the past 48 hours?: No Assessment/Plan - Problem List (1) Acute ischemic left MCA stroke Impression: This gentleman does have atrial fibrillation, Unknown duration, not anticoagulated. However the CT of the head is being interpreted as ischemic not embolic. He does have all the risk factors for ischemic stroke. Unable to swallow today. Plan: Continue aspirin Add plavix but can't swallow Add a statin but can't swallow Allow permissive hypertension of greater than 180 systolic if it occurs PT/OT evaluation done today and eval pending Family is discussing with Social Work about what next step is in placment for rehab. (2) Controlled type 2 diabetes mellitus Conclusion/Plan: resume lantus but not at 22 units. Will resume at 10 units since he is not eating much. continue SS short acting insulin. A1c is 7%. Will watch closely since he is now not eating. July 13: 95, 92, 120 July 14:101, 91 Qualifiers: Diabetes mellitus senior care insulin use: with senior care use Diabetes mellitus complication status: with neurologic complications Diabetes mellitus complication detail: with polyneuropathy Qualified Code(s): E11.42 - Type 2 diabetes mellitus with diabetic polyneuropathy; Z79.4 - terminal supervisor (current) use of insulin (3) Chronic anemia Conclusion/Plan: check anemia panel, pending check FOBT (4) Atrial fibrillation Conclusion/Plan: unknow duration. Rate is controlled. Can't anticoagulate for 48-72 hours in view of stroke. will treat then. check ECHO Qualifiers: Atrial fibrillation type: other persistent Qualified Code(s): I48.19 - Other persistent atrial fibrillation (5) Alzheimer disease Conclusion/Plan: Some of his dementia may be alcohol abuse related as well. But in any case this is a diagnosis that he carries. With his stroke, Alzheimer's disease, daughter has felt that his previous CODE STATUS of full code should not be changed to DO NOT RESUSCITATE. He is sundowning at night but behavior is not obstructive. Qualifiers: Alzheimer's disease onset: late-onset Dementia behavioral disturbance: without behavioral disturbance Qualified Code(s): G30.1 - Alzheimer's disease with late onset; F02.80 - Dementia in other diseases classified elsewhere without behavioral disturbance
[2019-07-14 16:04] LABS: ABSOLUTE RETICS # AUTO 0.037 10^6/uL (0.020-0.110); RED BLOOD COUNT 2.97 10^6/uL (4.70-6.10)
[2019-07-14 16:31] LABS: % IRON SATURATION 11 % (20-50); IRON 14 ug/dL (45-182); TOTAL IRON BINDING CAPACITY 129 ug/dL (250-450); TRANSFERRIN 92 mg/dL (180-329)
[2019-07-14] MEDS: INSULIN GLARGINE 300 UNIT/3 ML PEN SUBQ SCH (22:47)
[2019-07-15] MEDS: SODIUM CHLORIDE FLUSH 0.9% 10 ML SYRINGE IVP SCH ×3 (02:23→16:08)
[2019-07-15] MEDS: INSULIN ASPART 300 UNIT/3 ML PEN SUBQ SCH ×2 (08:43→14:15)
--- NOTE | 2019-07-15 15:01 | PROVIDER PROGRESS NOTE ---
Subjective - Prog Note Date Prog Note Date: 07/15/19 Prog Note Time: 15:04 - Subjective Subjective: he is slightly more awake. son now here and long conversation with son and daughter about prognosis and expected outcomes. Objective - Vital Signs/Intake & Output Vital Signs: Vital Signs x48h Temp Pulse Resp BP Pulse Ox 07/15/19 07:33 37.4 C 68 17 145/61 H 97 Intake & Output: Intake & Output 07/12/19 07/13/19 07/14/19 07/15/19 23:59 23:59 23:59 23:59 Intake Total 1050 1280 0 Output Total 1040 Balance 10 1280 0 - Lab Results Fish Bones: 07/13/19 11:02 07/13/19 11:02 Other Labs: Lab Results x24hrs 07/15/19 07/14/19 07/14/19 Range/Units 07:49 22:21 16:46 RBC (4.70-6.10) 10^6/uL Reticulocyte % (Auto) (0.5-2.3) % Absolute Retic (0.020-0.110) 10^6/uL POC Whole Bld Glucose 141 H 94 99 (70 - 100) mg/dL Iron (45-182) ug/dL TIBC (250-450) ug/dL % Saturation (20-50) % Transferrin (180-329) mg/dL Ferritin (23.9-336.2) ng/mL Lactate Dehydrogenase (91-225) IU/L Vitamin B12 (180-914) pg/mL 07/14/19 07/14/19 07/14/19 Range/Units 15:57 15:57 15:57 RBC (4.70-6.10) 10^6/uL Reticulocyte % (Auto) (0.5-2.3) % Absolute Retic (0.020-0.110) 10^6/uL POC Whole Bld Glucose (70 - 100) mg/dL Iron 14 L (45-182) ug/dL TIBC 129 L (250-450) ug/dL % Saturation 11 L (20-50) % Transferrin 92 L (180-329) mg/dL Ferritin 1392.0 H (23.9-336.2) ng/mL Lactate Dehydrogenase 212 (91-225) IU/L Vitamin B12 3497 H (180-914) pg/mL 07/14/19 Range/Units 15:57 RBC 2.97 L (4.70-6.10) 10^6/uL Reticulocyte % (Auto) 1.26 (0.5-2.3) % Absolute Retic 0.037 (0.020-0.110) 10^6/uL POC Whole Bld Glucose (70 - 100) mg/dL Iron (45-182) ug/dL TIBC (250-450) ug/dL % Saturation (20-50) % Transferrin (180-329) mg/dL Ferritin (23.9-336.2) ng/mL Lactate Dehydrogenase (91-225) IU/L Vitamin B12 (180-914) pg/mL Assessment/Plan - Problem List (1) Acute ischemic left MCA stroke Impression: This gentleman does have atrial fibrillation, Unknown duration, not anticoagulated. However the CT of the head is being interpreted as ischemic not embolic. He does have all the risk factors for ischemic stroke. Unable to swallow so he can't take his meds. He is sleepy and does move his left arm and hand to hold onto his daughter's hand. Seen by PT: 84 y/o male Dx CVA and Alzheimers- pt none verbal but responding to PT with improved central midline stability and no torticollis tightness or left side orientation- Pt showed fair to neutral tone BUE/ BLE- rt hip /knee mild pain with mobility very restricted hip flexor and full stance- PLF- pt : was walking with family and spiritual care coordinator support. Pt has good family- PLF pt was transfers and walking with spiritual care coordinator support in the home. Pt DX of CVA with acute torticollis to the neck . CLF pt showing much improved tolerance with Mod + A squat pivot transfers to chair with good central midline orientation and trunk / head control. Pt use both arms and legs during OOB activity. Pt needs continued PT to progress full standing and pregait / gait activity tolerance- D/c plan- Pt shows improved rehab potential and wt bearing through BLEs is fair + but semi squat stance. D/C plan is to SNF or rehab./ possible hospice and home too with feeding issue. Plan: Continue aspirin when swallows Add plavix but can't swallow Add a statin but can't swallow Allow permissive hypertension of greater than 180 systolic if it occurs Family has decided for Hospice. Even though he has improved somewhat with his mobility, his quality of life is already severely diminished by his dementia. He was completely dependent for getting food to him, helping him with dressing and toileting, and could never leave the home on his own. He really does not remember anybody but his daughter and even those days were few and far between where he would call her by name. Now with the stroke, they feel that his quality of life is diminished to the point that he would not want to be alive. (2) Controlled type 2 diabetes mellitus Conclusion/Plan: resume lantus but not at 22 units. Will resume at 10 units since he is not eating much. continue SS short acting insulin. A1c is 7%. Will watch closely since he is now not eating. July 13: 95, 92, 120 July 14:101, 91, 99, 07/15: 141, 142 Qualifiers: Diabetes mellitus usp insulin use: with technical sales manager use Diabetes mellitus complication status: with neurologic complications Diabetes mellitus complication detail: with polyneuropathy Qualified Code(s): E11.42 - Type 2 diabetes mellitus with diabetic polyneuropathy; Z79.4 - alliance consultant (current) use of insulin (3) Chronic anemia, iron deficiency Conclusion/Plan: Laboratory Tests 07/14/19 07/14/19 07/14/19 15:57 15:57 15:57 Iron 14 L TIBC 129 L % Saturation 11 L Transferrin 92 L Ferritin 1392.0 H Lactate Dehydrogenase 212 Vitamin B12 3497 H at this time, no further workup with decision to move to Hospice. (4) Atrial fibrillation Conclusion/Plan: unknow duration. Rate is controlled. Can't anticoagulate for 48-72 hours in view of stroke. No anticoagulation. ECHO:Technically excellent study. Underlying atrial fibrillation. Ejection fraction 55 to 60%. No regional wall motion abnormality seen. Severe increase in left atrial and right atrial volume. Mild to moderate mitral regurgitation. Mild tricuspid regurgitation. Mildly abnormal right heart pressures. Qualifiers: Atrial fibrillation type: other persistent Qualified Code(s): I48.19 - Other persistent atrial fibrillation (5) Alzheimer disease Conclusion/Plan: Some of his dementia may be alcohol abuse related as well. But in any case this is a diagnosis that he carries. With his stroke, Alzheimer's disease, daughter has felt that his previous CODE STATUS of full code should not be changed to DO NOT RESUSCITATE. He is sundowning at night but behavior is not obstructive. Qualifiers: Alzheimer's disease onset: late-onset Dementia behavioral disturbance: without behavioral disturbance Qualified Code(s): G30.1 - Alzheimer's disease with late onset; F02.80 - Dementia in other diseases classified elsewhere without behavioral disturbance
[2019-07-15 15:52] VITALS: BP 147/85
--- NOTE | 2019-07-15 22:11 | Discharge Plan ---
Discharge Plan Problem Reviewed?: Yes Disposition: 20 No Smoking: If you smoke, Please STOP! Call for help. Follow-up with: Turner Garcia MD [Primary Care Provider] -
--- NOTE | 2019-07-15 22:13 | DISCHARGE SUMMARY ---
Discharge Summary Admit Date: 07/13/19 Discharge Date: 07/15/19 Discharging Provider: Christiano Reyes Primary Care Provider: Turner Garcia Code Status: Do Not Attempt Resuscitation Discharge Disposition: 20 - DIAGNOSES Admission Diagnoses: Acute ischemic left MCA stroke Controlled type 2 diabetes mellitus Chronic anemia Atrial fibrillation Alzheimer disease Discharge Diagnoses with Status of Each Condition: Acute ischemic left MCA stroke - worse Controlled type 2 diabetes mellitus - stable. Chronic anemia - stable. Atrial fibrillation - stable. Alzheimer disease - stable. - HPI History of Present Illness: H&P per Dr. Yanez on 07/13/19: He is an 84-year-old male who stroke risk factors include male sex, history of HTN, current diabetes mellitus, hyperlipidemia. He is been gradually gradually more demented since approximately 2009. By 2011 he was no longer able to drive and could no longer pay bills. His daughter moved in to take care of her mother and father in 2013. His last year, and his daughter is been taking care of him since. He is able to feed himself, dress himself, and is supposed to be walking with a walker but forgets to use it. He has balance issues. He has chronic atrial fibrillation and is not on anticoagulation other than aspirin. He was in [place] on 07/10 to see his grandaughter in a play and his daughter noticed he was so tired he didn't want to walk. So on the way home, they stopped in [place] [facility] and he was with "normal labs" and was told he was dehydrated and sent home. Yesterday, 07/12, she noticed that he was getting slower to walk up the stairs in their house. No specific hemiplegia, dysarthria but he was also slow to speak. There was no fever, chills, cough, abdominal pain. Appetite was the same as usual. No change in bowel habits. He has chronic urinary incontinence. He went to bed as usual, and she went to wake him up to 10 this morning. She has noticed that he gazes off to the left. Is nonverbal. And really cannot get up to walk. He is not trembling, or off-balance, does not seem to understand what to do to get up and walk. He was seen by Dr. Watters where his temperature is 99.3. Blood pressure 127/95. He has evidence of body neglect in that he just does not look to his left. He has moderate to marked third/lateral ventriculomegaly that is unchanged. The temporal horns of the lateral ventricles remain markedly dilated. 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 Since his last CAT scan he is at interval development of a small area of abnormal hypodensity involving the cortex and underlying white matter in the lateral aspect of the posterior left frontal lobe including the left precentral gyrus. This is in the left middle cerebral territory. Extends over a distance of 1.3 x 1.85 cm. The other left middle cerebral artery territory is otherwise spared. Of note, he appears to have atrial fibrillation on EKG. This is a new diagnosis for him. He was seen in the emergency room in December 2018, that EKG was interpreted as atrial fibrillation by the computer. However the ER physician over read that and felt it was artifact. As such the patient is now admitted for stroke. - CONSULTS | PROCEDURES Consultations: Social Work, Hospice. Procedures: Head CT, head CTA, neck CTA, venous duplex of the lower extremities, echocardiogram. - HOSPITAL COURSE Hospital Course: He was admitted for acute ischemic left MCA stroke. Head CT showed stroke distribution in the left MCA. His EKG in the emergency room revealed atrial ablation which was believed to be new. He was treated with aspirin. We would have liked to add Plavix and Lipitor but he was unable to swallow. He was agitated and required Haldol to help with his agitation. His echo revealed a preserved ejection fraction with no identifiable thrombus. His mentation had improved slightly during this hospitalization but he was still agitated at times. Discussion was held with the family on July 15 regarding his poor prognosis and a decision was made to pursue hospice. He was made comfort measure that same day and his medications were discontinued except for Tylenol as needed. The patient that same evening at 2200. The patient's daughter, Shannan, was notified and she will be coming to the hospital. - ALLERGIES Allergies/Adverse Reactions: Allergies Allergy/AdvReac Type Severity Reaction Status Date / Time No Known Drug Allergies Allergy Verified 07/13/19 11:01 - MEDICATIONS Home Medications: Ambulatory Orders Medication Instructions Recorded Confirmed Aspirin [Aspir 81] 81 mg PO DAILY 03/12/14 07/14/19 Insulin Glargine [Lantus Solostar] 22 units SUBQ DAILY 03/12/14 07/14/19 Losartan [Cozaar] 25 mg PO DAILY 03/12/14 07/14/19 Multivit-Min/FA/Lycopen/Lutein 1 tab PO DAILY 11/07/18 07/14/19 [Centrum Silver Men Tablet] Cyanocobalamin (Vitamin B-12) 500 mcg PO DAILY 07/14/19 07/14/19 [Vitamin B-12 (500 mcg sublingual)] Insulin Lispro [Humalog Kwikpen 7 units SQ TIDWM 07/14/19 07/14/19 U-100] Metformin HCl 1,000 mg PO DAILY 07/14/19 07/14/19 - PHYSICAL EXAM AT DISCHARGE Eyes Bilateral: positive: Other (Pupils dilated and fixed. Not reactive to light.) Respiratory: positive: Other (No breath sounds present.) Cardiovascular: positive: Other (No heart sounds auscultated.) Peripheral Pulses: positive: 0 Skin: positive: Pallor - LABS Result Diagrams: 07/13/19 11:02 07/13/19 11:02
== END 2019-07-15 22:00 | disposition expired | DRG 65 ==
LOC: EDUNIT# → ED 10:51 → MS3 13:05
PROVIDERS: ADMIT Specialist; ATTEND Internal Medicine
DX: I63.9 Cerebral infarction, unspecified (principal); R29.712 NIHSS score 12; I48.19 Other persistent atrial fibrillation; G81.91 Hemiplegia, unspecified affecting right dominant side; R27.0 Ataxia, unspecified; I48.91 Unspecified atrial fibrillation; G30.9 Alzheimer's disease, unspecified; F05 Delirium due to known physiological condition; E11.9 Type 2 diabetes mellitus without complications; H51.8 Other specified disorders of binocular movement; R13.10 Dysphagia, unspecified; R29.810 Facial weakness; R47.01 Aphasia; E11.42 Type 2 diabetes mellitus with diabetic polyneuropathy; D50.9 Iron deficiency anemia, unspecified; G30.1 Alzheimer's disease with late onset; F02.80 Dementia in other diseases classified elsewhere, unspecified severity, without behavioral disturbance, psychotic disturbance, mood disturbance, and anxiety; E78.5 Hyperlipidemia, unspecified; N40.1 Benign prostatic hyperplasia with lower urinary tract symptoms; N39.498 Other specified urinary incontinence; R35.0 Frequency of micturition; R39.15 Urgency of urination; C61 Malignant neoplasm of prostate; G93.89 Other specified disorders of brain; I10 Essential (primary) hypertension; Z51.5 Encounter for palliative care; Z66 Do not resuscitate; Z79.4 Long term (current) use of insulin; Z79.82 Long term (current) use of aspirin; Z79.899 Other long term (current) drug therapy; Z79.818 Long term (current) use of other agents affecting estrogen receptors and estrogen levels; Z63.4 Disappearance and death of family member; Z87.898 Personal history of other specified conditions
CPT/HCPCS: 36415; 70496; 70498; 71045; 80053; 81003; 82607; 82728; 83036; 83540; 83605; 83615; 83690; 83735; 84466; 85025; 85045; 93005; 93306; 93970; 96361; 96374; 97163; 97530; 99284; 99285; A9270; J0131; J1815; Q9967; 70450; 81001; 87086